=== PATIENT | male | born 1955 | race Caucasian/White ===

== ENCOUNTER 2017-07-15 15:09 | Inpatient (IN) ==
--- OUTSIDE RECORDS SUMMARY | 2017-07-15 15:15 | External Medical Summary | Continuity Of Care Document ---
:1955 Author Organization [facility] Address [address] [place] [address] Phone Care Team Providers Name Role Phone Unavailable Unavailable Unavailable JASON ZAMORANO, DUARTE Stephens Attending Provider Results Lab Results Visit/Account #[id number] (July 10, 2017 12:33pm - July 10, 2017 1:45pm) Test Result Date/Time CREATININE,POINT OF CARE POC CREATININE(0.6-1.3 MG/DL) 1.4 MG/DL July 10, 2017 12:43pm EST GLOMERULAR FILTRATION RATE(Greater than or equal to 60) 52 July 10, 2017 12:43pm Result Comments: If the patient is of -[place] descent/extraction multiply the eGFR value by 1.212 to obtain the actual eGFR. >=60 mg/dL Normal 30-59 mg/dL Moderate Kidney Disease 15-29 mg/dL Severe Kidney Disease <15 mg/dL Kidney Failure POCGL POCGL(70-110 MG/DL) 148 MG/DL July 10, 2017 12:35pm POC PT/INR POC PROTHROMBIN TIME(11.0-13.6) 12.9 July 10, 2017 12:38pm POC INR 1.1 July 10, 2017 12:38pm Result Comments: INR reference interval applies to patients on anticoagulant therapy. Suggested INR therapeutic range for oral anticoagulant therapy: (Stabilized anticoagulated patients) Routine Therapy: 2.0 to 3.0 Recurrent Myocardial Infarction: 2.5 to 3.5 Mechanical Prosthetic Valves: 2.5 to 3.5 COMPLETE BLOOD COUNT WITH DIFF WHITE BLOOD COUNT(4.0-11.0 10E3/UL) 16.5 10E3/UL July 10, 2017 12:36pm RED BLOOD COUNT(4.50-5.90 10E6/UL) 4.84 10E6/UL July 10, 2017 12:36pm HEMOGLOBIN(13.5-17.5 G/DL) 15.1 G/DL July 10, 2017 12:36pm HEMATOCRIT(41.0-53.0 %) 43.1 % July 10, 2017 12:36pm MEAN CORPUSCULAR VOLUME(82.0-100.0 FL) 89.0 FL July 10, 2017 12:36pm MEAN CORPUSCULAR HEMOGLOBIN(26.0-34.0 PG) 31.2 PG July 10, 2017 12:36pm MEAN CORPUSCULAR HGB CONC(31.5-36.5 G/DL) 35.0 G/DL July 10, 2017 12:36pm RED CELL DISTRIBUTION WIDTH(11.5-14.5 %) 13.2 % July 10, 2017 12:36pm 777-3: PLATELET COUNT(150-450 10E3/UL) 229 10E3/UL July 10, 2017 12:36pm MEAN PLATELET VOLUME(8.2-12.4 FL) 9.8 FL July 10, 2017 12:36pm NEUTROPHILS % (AUTO)(40-70 %) 83 % July 10, 2017 12:36pm LYMPHOCYTES % (AUTO)(15-45 %) 9 % July 10, 2017 12:36pm MONOCYTES % (AUTO)(2-10 %) 5 % July 10, 2017 12:36pm EOSINOPHILS % (AUTO)(0-6 %) 1 % July 10, 2017 12:36pm BASOPHILS % (AUTO)(0-1 %) 0 % July 10, 2017 12:36pm IMMATURE GRANS % (AUTO)(0-0 %) 1 % July 10, 2017 12:36pm NUCLEATED RBCS (AUTO)(0-0 %) 0 % July 10, 2017 12:36pm NEUTROPHILS # (AUTO)(2.5-7.5 10E3/UL) 13.7 10E3/UL July 10, 2017 12:36pm LYMPHOCYTES # (AUTO)(1.0-4.0 10E3/UL) 1.5 10E3/UL July 10, 2017 12:36pm MONOCYTES # (AUTO)(0.2-0.8 10E3/UL) 0.9 10E3/UL July 10, 2017 12:36pm EOSINOPHILS # (AUTO)(0.0-0.4 10E3/UL) 0.1 10E3/UL July 10, 2017 12:36pm BASOPHILS # (AUTO)(0.0-0.2 10E3/UL) 0.1 10E3/UL July 10, 2017 12:36pm IMMATURE GRANS # (AUTO)(0.0-0.0 10E3/UL) 0.2 10E3/UL July 10, 2017 12:36pm DIFF TYPE AUTOMATED July 10, 2017 12:36pm ERYTHROCYTE SEDIMENTATION RATE ERYTHROCYTE SEDIMENTATION RATE(0-20 MM/HR) 10 MM/HR July 10, 2017 12:36pm PARTIAL THROMBOPLASTIN TIME PARTIAL THROMBOPLASTIN TIME(22.2-37.4 SEC) 26.9 SEC July 10, 2017 12:36pm COMPLETE METABOLIC PROFILE GLUCOSE(70-110 MG/DL) 152 MG/DL July 10, 2017 12:36pm BLOOD UREA NITROGEN(6-20 MG/DL) 21 MG/DL July 10, 2017 12:36pm CREATININE(0.50-1.20 MG/DL) 1.57 MG/DL July 10, 2017 12:36pm EST GLOMERULAR FILTRATION RATE(Greater than or equal to 60) 45 July 10, 2017 12:36pm Result Comments: If the patient is of -[place] descent/extraction multiply the eGFR value by 1.212 to obtain the actual eGFR. >=60 mg/dL Normal 30-59 mg/dL Moderate Kidney Disease 15-29 mg/dL Severe Kidney Disease <15 mg/dL Kidney Failure BUN CREATININE RATIO(10.0-20.0 RATIO) 13.0 RATIO July 10, 2017 12:36pm SODIUM(135-145 MMOL/L) 136 MMOL/L July 10, 2017 12:36pm POTASSIUM(3.6-5.0 MMOL/L) 4.5 MMOL/L July 10, 2017 12:36pm CHLORIDE(101-111 MMOL/L) 102 MMOL/L July 10, 2017 12:36pm CO2(21-31 MMOL/L) 23 MMOL/L July 10, 2017 12:36pm ANION GAP(8-18) 16 July 10, 2017 12:36pm OSMO CALCULATED(270.0-290.0) 277.9 July 10, 2017 12:36pm CALCIUM(8.5-10.5 MG/DL) 8.9 MG/DL July 10, 2017 12:36pm BILIRUBIN,TOTAL(0.1-1.2 MG/DL) 0.4 MG/DL July 10, 2017 12:36pm ALKALINE PHOSPHATASE(42-121 IU/L) 57 IU/L July 10, 2017 12:36pm ASPARTATE AMINO TRANSFERASE(10-42 IU/L) 24 IU/L July 10, 2017 12:36pm ALANINE AMINOTRANSFERASE(10-60 IU/L) 12 IU/L July 10, 2017 12:36pm TOTAL PROTEIN(6.4-8.2 G/DL) 6.3 G/DL July 10, 2017 12:36pm ALBUMIN(3.5-5.5 G/DL) 3.7 G/DL July 10, 2017 12:36pm GLOBULIN(2.4-3.6) 2.6 July 10, 2017 12:36pm ALBUMIN/GLOBULIN RATIO(0.9-1.8 RATIO) 1.4 RATIO July 10, 2017 12:36pm CARDIAC TROPONIN I CARDIAC TROPONIN I(0.01-0.04 NG/ML) Less than 0.01 NG/ML July 10, 2017 12: 36pm Result Comments: REFERENCE RANGES: NEGATIVE < 0.04 NG/ML POSSIBLE MYCARDIAL INVOLVEMENT >/=0.04 NG/ML INTERPRET TROPONIN I RESULT IN LIGHT OF THE TOTAL CLINICAL PRESENTATION INCLUDING CLINICAL HISTORY. ANY CONDITION RESULTING IN MYOCARDIAL INJURY CAN POTENTIALLY ELEVATE TROPONIN I LEVELS ABOVE EXPECTED NORMAL RANGES. NOTE NEW REFERENCE RANGE ALCOHOL ALCOHOL(0.0-5.0 MG/DL) Less than 5.0 MG/DL July 10, 2017 12:36pm Allergies and Adverse Reactions Allergies and Adverse Reactions Patient Unit Number: [id number] No allergies recorded. Problem List Problem List No problem list recorded. Plan of Care Plan Of Care No Plan Of Care Data. Vital Signs Vital Signs No Vital Signs Data. Functional Status Functional and Cognitive Status No Functional Status Data Medications Home Medications - Medications that the patient was taking prior to arrival at the hospital Visit/Account #[id number] (July 10, 2017 12:33pm - July 10, 2017 1:45pm) Medication Route Sig/Schedule Precondition/Indication Comments/ Instructions Codes TOPROL XL(METOPROLOL SUCCINATE) 50 MG TAB ORAL DAILY TOPROL XL ( METOPROLOL SUCCINATE) NDC: 44095399757 Dose: 50 MG PRINIVIL(LISINOPRIL) 10 MG TABLET ORAL DAILY PRINIVIL (LISINOPRIL) NDC: 76523355234 Dose: 10 MG ASPIRIN CHEW(ASPIRIN) 81 MG TAB.CHEW ORAL DAILY ASPIRIN CHEW (ASPIRIN) NDC: 40626267727 Dose: 81 MG Inpatient/Ordered Medications - Medications administered during hospital visit Visit/Account #[id number] (July 10, 2017 12:33pm - July 10, 2017 1:45pm) Medication Route Sig/Schedule Precondition/Indication Comments/ Instructions Codes IV Medication INTRAVEN .Q1H (Rate: 1000 MLS/HR Duration: 1 HR) Carriers: Carriers: NORMAL SALINE (SODIUM CHLORIDE) NDC: 05936563251 NORMAL SALINE(SODIUM CHLORIDE) 1000 ML INJECTION Dose: 1000 ML IV Medication INTRAVEN NOW (Rate: 0 MLS/HR Duration: 1 MIN) Rx Order Comments: Additives: Order filed UNV: Additives: Allergies/Duplicates/Interactions differ from grey stock recorder ACTIVASE (ALTEPLASE RECOMBINANT) NDC: 00504681129 Rule Override: POM.TPA - I attest no contraindications to tPA found ( checklist done) - By User: MBILHIMER ACTIVASE(ALTEPLASE RECOMBINANT) 100 MG INJECTION Rule Override: POM.TPA - I attest no contraindications to tPA found (checklist done) - By User: MBILHIMER Carriers: Dose: 9 MG Label Comments: (WATER STERILE) NDC: [id number] Carriers: [facility] Pharmacy do NOT send. This item is in the stroke team WATER STERILE 100 ML INJECTION kit. Dose: 0 ML History Of Encounters Encounters Visit/Account #[id number] (July 10, 2017 12:33pm - July 10, 2017 1:45pm) Account Physican Of Reason For Visit Diagnosis Start Date/Time Stop Date/ Time Status Record Visit ER DUARTE GOMEZ MD RIGHT SIDE WEAKNESS Not Available Jul 10, 2017 12 :33pm Jul 10, 2017 1:45pm History of Procedures Procedure List No procedures recorded. Discharge Instructions Discharge Instructions Visit/Account #[id number] (July 10, 2017 12:33pm - July 10, 2017 1:45pm) DISCHARGE INSTRUCTIONS Physician Documentation Social History Social History No Social History Data. Immunizations Immunizations Patient Unit Number: [id number] Immunizations No immunizations recorded.
--- OUTSIDE RECORDS SUMMARY | 2017-07-15 15:15 | External Medical Summary | Continuity of Care Document ---
:1955 Author Organization [facility] Care Team Providers Name Role Phone ORESTES VASQUEZ MD Unavailable Unavailable Insurance Providers Payer Name Policy Number Subscriber Name Relationship [employer] [id number] Quan [place] Self / Same As Patient Advance Directives Directive Response Recorded Date/Time Advanced Directives No 12/31/15 9:19am Problems Active Problems Medical Problem Onset Date Status Umbilical hernia Unknown Acute Medications Current Home Medications Medication Dose Units Route Directions Days/Qty Instructions Start Date Lisinopril (Zestril) 10 10 Mg ORAL Daily 90 12/30/15 Mg Metoprolol Succinate 50 50 Mg ORAL Daily 90 12/30/15 Mg Aspirin 81 Mg 81 Mg ORAL Daily 12/30/15 Social History Social History Problem Response Recorded Date/Time Onset Date Status Occupation or Former Occupation [employer] 2015 9:24am Query Response Start Date Stop Date Smoking Status Current every day smoker Hospital Discharge Instructions No hospital discharge instructions. Plan of Care Discharge Date 12/31/15 1:20pm Prescriptions See Medication Section Functional Status No functional status results. Allergies, Adverse Reactions, Alerts No known allergies. Immunizations No immunization records. Vital Signs Acute Vital Signs Vital Response Date/Time Temperature (Fahrenheit) 97.6 2015 12:31pm Pulse 62 bpm 2015 1:03pm Respirations 20 2015 1:03pm Height 5 ft 8 in Weight 209 lb Body Mass Index 31.0 kg/m^2 Results No known relevant diagnostic tests, laboratory data and/or discharge summary. Procedures No known history of procedures. Encounters Encounter Location Arrival/Admit Date Discharge/Depart Date Attending Provider Departed Azeem 12/31/15 8:52am 12/31/15 1:20pm PRISCILA MUN[facility] MD Care Recent Diagnosis Umbilical hernia
[2017-07-15] MEDS: BUDESONIDE/FORMOTEROL 80/4.5mcg INHALER IH SCH (19:58)
--- NOTE | 2017-07-15 20:36 | IRU History & Physical Report ---
HPI IRU Date: Chief complaint: Right sided weakness HPI: Mister Santos is a 61-year-old male from [facility] whom I saw on the acute inpatient rehabilitation unit. Referring physician is Toby Tijerina M.D. from [facility]. His primary care physician is Dr. Alex Segal in [place]. History is obtained from the family, the patient and transfer records. I also reviewed the ED records from [facility]. Mister Santos was in his usual state of health prior to this event. He was totally independent with his activities of daily living. He works at [employer] in [place] in the [facility] [place]. He does have history of hypertension and takes medications for this. The patient went to meet a friend in [place] on July 10, 2017. They were having coffee. He was noted to suddenly have onset of confusion and difficulty with speech. EMS was called and he was transported to the emergency department in [place]. His blood sugar was running 147. Stroke activation was called and he had an NIH stroke score of 17. Family was not available for discussion. A stat CT scan was done which was unremarkable. He had significant right hemiparesis and expressive aphagia. The patient was given TPA after consultation was made with [facility] neurology. His last known wakefulness and normal activity was 10 AM on the day of the event. TPA was begun at 1315 hrs. Following that the patient was transferred emergently to [facility] neurological ICU. MRI of brain on July 11, 2017 demonstrated large left MCA territory infarct without evidence of involvement of the deep fisher nuclei. There was some associated cortical edema but no mass effect and no hemorrhage. On July 13 an echocardiogram showed an ejection fraction of around 60% and apparently no cardiac source of embolus. Chest x-ray has demonstrated some mild pulmonary congestion and small left pleural effusion. His NIH stroke scale improved to 11 for right-sided weakness, aphagia, left gaze , inability to follow commands and confusion. Blood pressure in [place] was 103 and in [place] it was 99. CT angiogram of the head and neck was negative for occlusion. In addition his initial creatinine was 1.57 possibly indicative of acute kidney injury. While in [place], it was noted that his blood sugars were running a bit high. He has not been diagnosed officially with diabetes mellitus. Reviewing outside records indicates fingerstick blood sugars high of 157 with many of them in the 120-130 range. His A1c on July 10, 2017 was 6.1%. His creatinine has returned to normal as of July 13 at which time it was 1.06. Potassium was low at 3.4 on July 13. At home the patient is fully ambulatory and able to take care of himself. He is quite active. He does smoke one pack of cigarettes daily. Last alcohol reportedly 2013. He has recently been started on atorvastatin after the stroke in [place]. Patient does not use any assistive equipment at home. In [place] he was evaluated by speech therapy, occupational therapy and physical therapy in [place]. He does have an expressive and receptive aphasia. He is currently on a mechanical soft diet with no added salt and nectar thickened liquids. Compared to his prior totally independent level of functioning, at the present time he has significant right hemiparesis. He is at supervision level for feeding, moderate assistance for grooming, moderate assistance for upper and lower body dressing, minimal assistance for toileting and bed/chair/wheelchair transfers as well as toilet transfers. He is maximum assistance for walking. He has a significant expressive aphasia. Medical issues identified as follows: 1. New left hemispheric CVA with right hemiparesis: He is at risk for falls and further injury in that regard as well as at risk for intracranial bleeding. He is also at risk for aspiration. 2. Hypertension 3. Hyperlipidemia: Patient is on a new medication for this 4. He is at risk for skin breakdown in view of the right hemiparesis and reduced activity 5. Recent hypokalemia 6. Abnormal chest X-ray with pleural effusion 7. Wheezing/bronchospasm by report from [place] While on acute rehabilitation he will be seen by the following disciplines: 1. Dietitian: to insure adequate oral intake in view of his dysphagia 2. Speech therapy: To assess dysphagia as well as cognition and speech development 3. Physical therapy and occupational therapy to address ADLs and ambulation 4. 24-hour rehabilitation nursing to monitor blood sugars, blood pressures and neurologic status 5. Medical supervision for the above problems. [facility] Patient Stated Medical History Cerebrovascular Accident Yes: 07/10/17 Dysphagia Yes: since stroke 07/10/17 Chronic Obstructive Pulmonary Yes Disease (COPD) Constipation No Hx Incontinence No Medical History Updates: 1. Hypertension. 2. Hyperlipidemia. 3. Chronic tobacco use. 4. Hyperglycemia without dx of diabetes. 5. Acute left MCA CVA: ischemic 07-10-17 Surgical History: Knee surgery for meniscus (? which knee) Family History: Father is living and has colon cancer and "spells." Mother is living and healthy. - Social History Smoking status: Current every day smoker Packs per day: 1 (Started age 15 and continues to present) Packs-years: 46 Quit date: 07/10/17 Time spent discussing smoking cessation with patient: 3 to 10 minutes Substance use type: does not use Alcohol intake: former Housing: house Household members: spouse Current occupational status: employed Current residence: Apartment/Private Home Social history: Pt works at [employer] in [place] in the [facility] [place]. Review of Systems - Constitutional Constitutional: Present: lethargy - EENMT Eyes: Present: diplopia (He denies this but does have dysconjugate gaze on exam. ). Absent: blurry vision, loss of vision Balance: Absent: vertigo Mouth/Throat: Absent: sore throat - Cardiovascular Cardiovascular: Absent: chest pain, palpitations, syncope, dyspnea on exertion, orthopnea, edema Rhythm: Present: regular rhythm - Respiratory Respiratory: Present: wheezing, chest congestion. Absent: cough, dyspnea, hemoptysis, dyspnea on exertion - Gastrointestinal Gastrointestinal: Absent: abdominal pain, change in bowel habits, change in stool character, coffee ground emesis, constipation, diarrhea, dyspepsia, dysphagia, early satiety, nausea, vomiting - Integumentary/Breasts Integumentary: Absent: alopecia, erythema - Neurological Neurological: Present: abnormal gait, abnormal speech, focal weakness, weakness. Absent: abnormal movements, headache(s), tremor(s) - Psychiatric Psychiatric: Present: abnormal sleep pattern. Absent: anxiety, depression Medications Home Medications Medication Instructions Recorded Confirmed Type Albuterol/Ipratropium [Duoneb] 1 unit AEROSOL Q2HR PRN 07/15/17 07/15/17 History Albuterol/Ipratropium [Duoneb] 1 unit AEROSOL Q6H 07/15/17 07/15/17 History Amlodipine [Norvasc] 5 mg PO DAILY 07/15/17 07/15/17 History Atorvastatin Calcium 80 mg PO HS 07/15/17 07/15/17 History Budesonide/Formoterol Fumarate 2 puff IH BID 07/15/17 07/15/17 History [Symbicort 80-4.5 Mcg Inhaler] Docusate Sodium [Colace] 1 cap PO BID 07/15/17 07/15/17 History Ramelteon [Rozerem] 8 mg PO HS 07/15/17 07/15/17 History Results IRU - Labs Labs: I personally reviewed outside records from [place] as well as [facility]. Exam Vital Signs: Temperature 97.0 F 07/15/17 15:13 Pulse Rate 64 07/15/17 15:13 Respiratory Rate 16 07/15/17 20:00 Blood Pressure 129/72 07/15/17 15:13 Pulse Oximetry 94 07/15/17 15:13 Height/Weight/BMI: Height 1.73 m Weight 104.7 kg Body Mass Index 35.1 - Constitutional Present: mild distress, well nourished, well developed, obese, cooperative. Absent: diaphoretic, agitated, somnolent, obtunded - Routine HEENT Exam Head: Present: normocephalic, atraumatic. Absent: abrasion, laceration, hematoma Eye: Present: PERRL. Absent: EOMI (disconjugate gaze. Right eye does not move well to his right.), conjunctival icterus, scleral injection, conjunctivae pink ENT: Present: mucous membranes moist - Routine Neck Exam Present: supple, full ROM. Absent: lymphadenopathy, thyromegaly - Routine Chest/Breast/Axilla Exam Chest wall: Absent: tenderness - Routine Respiratory Exam Present: CTA bilaterally. Absent: accessory muscle use, dyspnea, decreased breath sounds, respiratory distress, wheezes (wheezes were reported on transfer records but he sounds clear at present.) - Routine Cardiovascular Exam Present: RRR, S1, S2, no murmur. Absent: S3, S4 - Routine Abdominal Exam Present: soft, normoactive bowel sounds, non distended, non tender. Absent: guarding, firm, rigid, organomegaly, mass - Routine Extremities Exam Present: no edema. Absent: cyanosis, clubbing - Routine Neurological Exam Present: alert, motor deficit, abnormal gait, facial asymmetry. Absent: oriented X3 (unable to fully determine orientation due to expressive aphasia.), CN II-XII intact (right facial droop.), normal speech, tremors His neurologic exam is abnormal. He does not have a tremor. He is able to raise the right arm off the bed somewhat against resistance. He can hold it in mid air. He clearly has right side neglect. At one point he spontaneously raised his right arm and it fell on his right side of his face which seemed to surprise him. Fine motor movement in right hand is poor. He is able to lift the right leg off the bed against resistance fairly well. Plantarflexion and dorsiflexion is reduced on the right compared to the left but is still present. He does have right facial droop. He does have severe expressive aphasia. I can understand some words and he seems to be able to understand most of what we are asking. - Routine Psychiatric Exam Present: cooperative. Absent: agitated Sepsis Assessment - Evaluation Confirmed Suspected Infection: No IRU A/P (1) Acute ischemic left MCA stroke Current visit: Yes Status: Acute The patient has had TPA at the time of presentation and has been evaluated and is now on aspirin. No embolic source was able to be identified. CTA of neck arteries and head vessels was negative. He will require intensive individualized physical therapy, occupational therapy and speech therapy along with other disciplines to allow him to get back to his previous level of functioning. (2) Benign essential hypertension Current visit: Yes Status: Chronic He is on medication for his hypertension. His blood pressures have been fairly well controlled in the records that we have available. This will be monitored carefully as he is at risk for lightheadedness, hypertension or hypotension. (3) Hyperglycemia Current visit: Yes Status: Acute It is not certain how long he has had elevated blood sugars. His A1c is fairly normal. We will treat this with a consistent carbohydrate diet and monitor his blood sugars. (4) Hyperlipidemia Qualifiers: Hyperlipidemia type: mixed hyperlipidemia Qualified Code(s): E78.2 - Mixed hyperlipidemia Current visit: Yes Status: Chronic He was recently started on simvastatin for his hyperlipidemia. DVT Prophylaxis: SCD's, Lovenox Resuscitation Status: Full Code - Course Hospital Course: Silas Alba MD: - Interventions to Obtain Goals PT Treatment Plan: Balance/Proprioception, Functional Activities, Gait Training , Patient/Family Education, Therapeutic Exercise OT Treatment Plan: ADL (Basic Care), Balance Training, Pt./Family Education, UE Functional Training Goals Progress/Modifications: An intensive individualized program of therapy will be developed for this patient with an acute right hemiparesis. He has significant needs for physical therapy, occupational therapy and speech therapy as well as close monitoring by dietitian, 24-hour rehabilitation nursing and medical supervision of multiple problems. We will monitor his blood sugars as well.
[2017-07-15] MEDS ORDERED: RAMELTEON 8 MG PO SCH (21:00)
--- NOTE | 2017-07-15 21:03 | IRU 24Hr Post Admit Eval ---
24 Hr Post Admission Physical - Relevant Changes Relevant Changes: No Reviewed: I have reviewed the patient's information and concur with the finding and results of the pre-admission screen. Certification: I certify the patient for rehabilitation. - Patient Condition (1) Acute ischemic left MCA stroke Status: Acute Code(s): I63.512 - Cerebral infarction due to unspecified occlusion or stenosis of left middle cerebral artery Classification: Present on IRF Admission, IRF Tx That Should Address Diagnosis, Diagnosis Requiring Medical Follow Up (2) Benign essential hypertension Status: Chronic Code(s): I10 - Essential (primary) hypertension Classification: Present on IRF Admission, IRF Tx That Should Address Diagnosis, Diagnosis Requiring Medical Follow Up (3) Hyperglycemia Status: Acute Code(s): R73.9 - Hyperglycemia, unspecified Classification: Present on IRF Admission, IRF Tx That Should Address Diagnosis, Diagnosis Requiring Medical Follow Up (4) Hyperlipidemia Status: Chronic Qualifiers: Hyperlipidemia type: mixed hyperlipidemia Qualified Code(s): E78.2 - Mixed hyperlipidemia Code(s): E78.5 - Hyperlipidemia, unspecified Classification: Present on IRF Admission, Diagnosis Requiring Medical Follow Up - Prior Functional Status Lives With: Spouse Residence Type: Apartment/Private Home Assitive Devices: None Prior Functional Status: Indep. at home or school, Indep. w/ IADL - Current Functional Status Current Level of Function: He has significant right hemiparesis. He is at supervision level for feeding, moderate assistance for grooming, moderate assistance for upper and lower body dressing, minimal assistance for toileting and bed/chair/wheelchair transfers as well as toilet transfers. He is maximum assistance for walking. He has a significant expressive aphasia. Failed Alternative Therapy: Arrived from Acute Care Patient Requirements: The patient requires oversight by rehabilitation physician to manage their rehabilitation treatment plan and multidisciplinary approach to care that can only be provided in an IRF and requires a multidisciplinary approach to care, provided by professional PTs, OTs, STs, dieticians, RTs, rehabilitation nurses and is not available in lesser levels of care. Limitations Req: Mobility Impairment, ADL Impairment Speech Therapy Minutes: 30 Physical Therapy Minutes: 90 Occupational Therapy Minutes: 90 Therapy: The patient is to receive therapy at least [address] Treatment Plan: Swallow Retraining/Exercises, Swallow Precautions, Modified Diet, Oral Motor Exercise, Communication Retraining, Cognitive Linguistic Tx ST Treatment Plan Frequency: Five Times Per Week ST Treatment Plan Duration: Two Weeks ROM Deficit: Right Upper Extremity, Right Lower Extremity - Complications/Comorbidities Impact on Functional Outcomes: his right hemiparesis as well as potentially his bronchospasm are barriers to functional improvement. Barriers to Discharge: Weakness, Balance, Endurance - Plan to Avoid Complications Plan to Avoid Complications: The patient cannot receive this care in a lesser intensive setting such as [facility] or Outpatient Therapy due to the patient requiring the following : close monitoring of neurologic status, blood glucose monitoring, skin assessment, BP monitoring. .
[2017-07-15] MEDS: DOCUSATE SODIUM 100 MG CAPSULE PO SCH (21:40)
[2017-07-15] MEDS: ATORVASTATIN 40 MG TABLET PO SCH (21:40)
[2017-07-15] MEDS: MELATONIN 5 MG TABLET PO SCH (21:41)
[2017-07-16] MEDS: DOCUSATE SODIUM 100 MG CAPSULE PO SCH ×2 (08:58→21:09)
[2017-07-16] MEDS: ENOXAPARIN 40 MG/0.4 ML INJECTION SQ SCH (08:58)
[2017-07-16] MEDS: AMLODIPINE 5 MG TABLET PO SCH (08:58)
[2017-07-16] MEDS: ASPIRIN *EC* 81 MG TABLET PO SCH (08:58)
--- NOTE | 2017-07-16 09:03 | Consult Note ---
<Mali Curry Aníbal - Last Filed: 07/16/17 09:26> Consult Information - Data of Consult Consult date: 07/16/17 Requesting Physician: Silas Alba MD Primary Care Provider: Alex Segal MD Family Provider: Alex Segal MD - Consult Narrative Reason for consult: stroke; medical management History of present illness: Quan Santos is a 61 y/o male who suffered a stroke with right hemiparesis, left gaze, confusion, dysphagia, ataxia, inability to follow directions, and receptive/expressive aphasia on 07/10/17. Initial NIH was 17. He received IV tPA 9 mg in [place] and was transferred to neuro ICU at [facility], where he received hypertonic fluids for cerebral edema and was started on statin and ASA was continued but was increased from 81 mg which he took at home to 325 mg. Quan had mild bradycardia (likely baseline) but no a-fib. He had wheezing and was given duoneb; providers at [facility] suspected underlying COPD d/t smoking hx. He was medically stabilized and was transferred to [facility] on 07/15/17. Quan was working with therapy, and was A&O and very pleasant. He smiled often, especially when he had difficulties with expressive aphasia. He was unable to confirm whether or not he lived in [place] or [place]; unable to state his occupation. His responses were largely limited to yes/no responses, and even then he occasionally had to retract his response or wavered between yes/no. He feels like that right facial drooping and right hemiparesis are improving. He feels a little off balance but OT reports that he's fairly stable on his feet. He endorses vision changes and waves his hand over his right eye but was unable to provide further details. He has right arm swelling and b/l leg swelling. He denies headache, chest pain, dizziness, or lightheadedness. He denies sinus congestion/drainage. He denies palpitations. He denies abdominal pain, n/v/d/c or any urinary issues. PFSH Acute left MCA CVA: ischemic 07/10/17 s/p TPA Hypertension Hyperlipidemia Chronic tobacco use Hyperglycemia without dx of diabetes Obesity BMI >30 Surgical History: 2D echo with bubble study: EF 55-65%, no wall abnormalities, shunts, or clots. Knee surgery (scars noted to both knees) Family History: Patient denies family history of stroke, heart disease, or cancer. - Social History Smoking status: Current every day smoker Packs per day: 1 Substance use type: does not use Alcohol intake: former (quit in 2013) Household members: spouse Current occupational status: employed Current residence: Apartment/Private Home Social history: PCP: Dr. Segal in [place] DPOA: Jamilah Santos, Review of Systems ROS unobtainable: due to mental status (pt continues to have expressive aphasia and ROS may not be entirely accurate. His responses were largely limited to y/n but sometimes he changed his answer. ) All systems PM: 10-point ROS was reviewed, no additional remarkable complaints except - Constitutional Constitutional: Absent: chills, fever(s) - EENMT Eyes: Present: change in vision (has difficulty describing) Nose: Absent: obstruction Mouth/Throat: Present: changes in swallowing. Absent: sore throat - Cardiovascular Cardiovascular: Absent: chest pain, dyspnea on exertion Vascular: Present: pedal edema, unilateral swelling (right arm) - Respiratory Respiratory: Present: wheezing (per [facility] notes he had occasional expiratory wheezing). Absent: cough, dyspnea on exertion - Gastrointestinal Gastrointestinal: Absent: abdominal pain, constipation, diarrhea, nausea, vomiting - Genitourinary Genitourinary: Present: other (had Velazquez at [facility]). Absent: dysuria - Musculoskeletal Musculoskeletal: Present: abnormal gait. Absent: back pain, muscle weakness - Integumentary/Breasts Integumentary: Present: other (ecchymosis to both arms) - Neurological Neurological: Present: abnormal gait, abnormal movements, abnormal speech, confusion, weakness - Psychiatric Psychiatric: Absent: anxiety, depression - Hematologic/Lymphatic Hematologic/Lymphatic: Absent: easy bleeding, easy bruising - Allergic/Immunologic Allergic/Immunologic: Absent: seasonal rhinorrhea Medications Home Medications Medication Instructions Recorded Confirmed Type Albuterol/Ipratropium [Duoneb] 1 unit AEROSOL Q2HR PRN 07/15/17 07/15/17 History Albuterol/Ipratropium [Duoneb] 1 unit AEROSOL Q6H 07/15/17 07/15/17 History Amlodipine [Norvasc] 5 mg PO DAILY 07/15/17 07/15/17 History Atorvastatin Calcium 80 mg PO HS 07/15/17 07/15/17 History Budesonide/Formoterol Fumarate 2 puff IH BID 07/15/17 07/15/17 History [Symbicort 80-4.5 Mcg Inhaler] Docusate Sodium [Colace] 1 cap PO BID 07/15/17 07/15/17 History Ramelteon [Rozerem] 8 mg PO HS 07/15/17 07/15/17 History Allergies Allergy/AdvReac Type Severity Reaction Status Date / Time No Known Allergies Allergy Verified 07/16/17 08:31 Exam Vital Signs: Temperature 98.1 F 07/15/17 23:27 Pulse Rate 56 L 07/15/17 23:27 Respiratory Rate 22 07/15/17 23:27 Blood Pressure 113/76 07/15/17 23:27 Pulse Oximetry 93 07/15/17 23:27 Height/Weight/BMI: Height 1.73 m Weight 104.7 kg Body Mass Index 35.1 - Constitutional Present: no acute distress, well nourished, well developed, obese - Routine HEENT Exam Head: Present: normocephalic Eye: Present: PERRL. Absent: EOMI, conjunctival icterus, scleral injection ENT: Present: mucous membranes moist, oropharynx clear - Routine Neck Exam Present: supple. Absent: lymphadenopathy - Routine Respiratory Exam Present: CTA bilaterally - Routine Cardiovascular Exam Present: RRR, S1, S2 - Routine Abdominal Exam Present: soft, non tender. Absent: normoactive bowel sounds (hypoactive) - Routine Extremities Exam Present: edema (2+ BLE; Rt arm is also edematous), pulses intact Comments: linear scars over both tibial tuberosities with arthroscopic scars also noted to left knee - Routine Skin Exam Present: intact, dry, warm, ecchymosis (both arms) - Routine Neurological Exam Present: alert No nystagmus but tendency towards left gaze and had difficulty with EOMs Light touch sensation intact Right facial droop with loss of right nasolabial fold Tongue deviates to the right RUE 3/5, LUE 5/5 Unable to perform alternating movements in right hand but has no difficulty with left hand RLE 5/5, LLE 5/5 - Routine Psychiatric Exam Present: normal affect (smiles frequently), cooperative Results - Labs CBC & Chem 7: 07/16/17 04:55 07/16/17 04:55 Assessment and Plan (1) Acute ischemic left MCA stroke Current visit: Yes Status: Acute Resuscitation Status: Full Code Assessment and Plan: IMPRESSION Acute left MCA CVA: ischemic 07/10/17 s/p TPA -Right hemiparesis, left gaze, expressive aphasia, dysarthria, confusion, dysphagia -ASA 325, statin Leukocytosis Hypernatremia (had been on hypertonic saline) Hypokalemia - resolved Thromboyctopenia - resolved Hypertension Hyperlipidemia Chronic tobacco use, suspect underlying COPD Hyperglycemia without dx of diabetes Obesity BMI >30 PLAN Dysphagia - ST to eval. Antiplatelet - ASA 325 mg (prior to stroke he was taking 81 mg) Statin - atorvastatin Hypernatremia - not unexpected given hypertonic infusion - recheck BMP + mg in am. Rt arm swelling - check venous doppler. HTN - Norvasc. Goal is SBP <160. Suspect COPD - Symbicort BID + DuoNeb PRN. Nicotine patch PRN. Will ask RT to provide smoking cessation counseling. Agree with discontinuing Rozerem. Therapy orders per attending. Thank you for this consult - we will follow Mr. Santos along with you during his IRU course. [facility] record review: CT/MRI showed a large acute ischemic left MCA stroke and associated cortical edema without mass effect/hemorrhage. CTA head/neck with contrast: acute left MCA infarct; minimal bilateral carotid bifurcation but no hemodynamically significant stenosis, chronic maxillary and sphenoid sinus disease. Prior to the stroke he was on a regular diet but this was changed to mechanical soft and nectar thick liquids. 2D echo with bubble study: EF 55-65%, no wall abnormalities, shunts, or clots He had a Velazquez catheter at [facility]. Mild leukocytosis (WBC 11); normocytic anemia with hgb 12.2; BUN 21, cr 0.95; mild hypernatremia (146) & mild hypokalemia (3.4); mg low-normal (1.9). Lipid panel done on 07/11 showed chol 147, LDL 93, HDL 32 (Low), trig 112; hgb A1c 6.1% . Platelets trended down from 145 on 07/11 to 104 on 07/14. Hospital Course Summary Disclaimer: The visit summary below is not to be considered part of the above Progress Note. Hospital Course: IMPRESSION Acute left MCA CVA: ischemic 07/10/17 s/p TPA -Right hemiparesis, left gaze, expressive aphasia, dysarthria, confusion, dysphagia -ASA 325, statin Leukocytosis Hypernatremia (had been on hypertonic saline) Hypokalemia - resolved Thromboyctopenia - resolved Hypertension Hyperlipidemia Chronic tobacco use, suspect underlying COPD Hyperglycemia without dx of diabetes Obesity BMI >30 PLAN Dysphagia - ST to eval. Antiplatelet - ASA 325 mg (prior to stroke he was taking 81 mg) Statin - atorvastatin Hypernatremia - not unexpected given hypertonic infusion - recheck BMP + mg in am. Rt arm swelling - check venous doppler. HTN - Norvasc. Goal is SBP <160. Suspect COPD - Symbicort BID + DuoNeb PRN. Nicotine patch PRN. Will ask RT to provide smoking cessation counseling. Agree with discontinuing Rozerem. Therapy orders per attending. Thank you for this consult - we will follow Mr. Santos along with you during his IRU course. [facility] record review: CT/MRI showed a large acute ischemic left MCA stroke and associated cortical edema without mass effect/hemorrhage. CTA head/neck with contrast: acute left MCA infarct; minimal bilateral carotid bifurcation but no hemodynamically significant stenosis, chronic maxillary and sphenoid sinus disease. Prior to the stroke he was on a regular diet but this was changed to mechanical soft and nectar thick liquids. 2D echo with bubble study: EF 55-65%, no wall abnormalities, shunts, or clots He had a Velazquez catheter at [facility]. Mild leukocytosis (WBC 11); normocytic anemia with hgb 12.2; BUN 21, cr 0.95; mild hypernatremia (146) & mild hypokalemia (3.4); mg low-normal (1.9). Lipid panel done on 07/11 showed chol 147, LDL 93, HDL 32 (Low), trig 112; hgb A1c 6.1% . Platelets trended down from 145 on 07/11 to 104 on 07/14. <Lian Rossi - Last Filed: 07/16/17 18:10> Consult Information - Data of Consult Primary Care Provider: Exam Vital Signs: Temperature 98.8 F 07/16/17 16:00 Pulse Rate 55 L 07/16/17 16:00 Respiratory Rate 16 07/16/17 16:00 Blood Pressure 139/74 07/16/17 16:00 Pulse Oximetry 96 07/16/17 16:00 Height/Weight/BMI: Height 1.73 m Weight 104.7 kg Body Mass Index 35.1 Results - Labs CBC & Chem 7: 07/16/17 04:55 07/16/17 04:55 Assessment and Plan (1) Acute ischemic left MCA stroke Current visit: Yes Status: Acute Assessment and Plan: I have independently evaluated and examined this patient. I reviewed the chart, the patient's history, and the [facility] [employer] CALL/PA's documented findings as above. We discussed and formulated the assessment and plan as above with additions as below: Mr. Santos transferred from the neuro ICU at [facility] after large vessel ischemic stroke involving the left MCA territory with resultant right hemiparesis and global aphasia described initially. At present aphasia appears to be primarily expressive. Workup is as described above and he is now transferred for aggressive inpatient rehabilitation. Patient reports that he is getting better and hopes to be able to go home walking. He is typically able to answer yes/no and with occasional words although word misuse is frequently evident. He is not overtly frustrated with expressive aphasia at the time of my evaluation and lasted off or shakes his head and moves on. No drift right upper extremity, minimal vocational technical education director right hand-hand appears to be the primary motor deficit lingering. Power in the lower extremities is good. Sensation intact to light touch including two point stimulation. Speech is previously noted. Cardiac rhythm regular, S1 and S2, respirations nonlabored with good airflow. Venous Doppler upper extremity reviewed-no DVT [facility] records reviewed, discharge summary still pending. Adequate blood pressure control. Continue aspirin and statin. Hospital Course Summary Disclaimer: The visit summary below is not to be considered part of the above Progress Note.
[2017-07-16] MEDS ORDERED: ALBUTEROL/IPRATROPIUM 2.5mg-0.5mg/3ml NEB AEROSOL ONE (09:57)
[2017-07-16] MEDS: BUDESONIDE/FORMOTEROL 80/4.5mcg INHALER IH SCH ×2 (10:25→21:27)
[2017-07-16] MEDS: ATORVASTATIN 40 MG TABLET PO SCH (21:09)
[2017-07-16] MEDS: MELATONIN 5 MG TABLET PO SCH (21:10)
[2017-07-17] MEDS: AMLODIPINE 5 MG TABLET PO SCH (08:40)
[2017-07-17] MEDS: DOCUSATE SODIUM 100 MG CAPSULE PO SCH ×2 (08:40→20:37)
[2017-07-17] MEDS: ENOXAPARIN 40 MG/0.4 ML INJECTION SQ SCH (08:40)
[2017-07-17] MEDS: ASPIRIN *EC* 81 MG TABLET PO SCH (08:40)
[2017-07-17] MEDS: NICOTINE PATCH REMOVAL TD SCH (08:41)
[2017-07-17] MEDS: BUDESONIDE/FORMOTEROL 80/4.5mcg INHALER IH SCH (10:00)
[2017-07-17] MEDS ORDERED: INHALER ASSIST DEVICE (Optichamber) MC ONE (10:07)
--- NOTE | 2017-07-17 10:24 | Ultrasound Report ---
Indication: Rt arm swelling r/o DVT PROCEDURE: US venous doppler UE RT: Encounter: Initial Comparison: None Technique: Color Doppler duplex and grayscale sonographic imaging of the right upper extremity was performed. FINDINGS: There is no evidence for acute deep venous thrombosis in the right arm. The right internal jugular, subclavian, axillary and paired brachial veins were evaluated; compression and augmentation were applied where possible. In addition, color and pulsed Doppler demonstrate appropriate spontaneous flow, cardiac pulsatility and variation with respiration. IMPRESSION: No evidence of acute DVT in the right upper extremity. There is a preliminary report by [facility]. .
[2017-07-17] MEDS: MELATONIN 5 MG TABLET PO SCH (20:37)
[2017-07-17] MEDS: ATORVASTATIN 40 MG TABLET PO SCH (20:37)
[2017-07-18] MEDS: DOCUSATE SODIUM 100 MG CAPSULE PO SCH ×2 (08:48→21:40)
[2017-07-18] MEDS: NICOTINE PATCH REMOVAL TD SCH (08:49)
[2017-07-18] MEDS: ASPIRIN *EC* 81 MG TABLET PO SCH (09:02)
[2017-07-18] MEDS: AMLODIPINE 5 MG TABLET PO SCH (09:03)
--- NOTE | 2017-07-18 09:52 | Progress Note ---
Subjective: Quan was getting ready for breakfast. His right facial droop isn't as pronounced and he has better control of the proximal muscles of his right arm. He answers questions with more accuracy but still has expressive aphasia and occasionally has to correct himself. He is jovial and smiles/laughs often. He denies any chest pain or difficulty breathing. He rested well last night. He denies dysphagia. Objective Vital signs: Temperature 98.3 F 07/18/17 08:00 Pulse Rate 63 07/18/17 08:00 Respiratory Rate 18 07/18/17 08:00 Blood Pressure 112/65 07/18/17 08:00 Pulse Oximetry 97 07/18/17 08:00 Height/Weight/BMI: Height 1.73 m Weight 104.7 kg Body Mass Index 35.1 - Constitutional Present: no acute distress, well nourished, well developed, obese - Routine HEENT Exam ENT: Present: mucous membranes moist, oropharynx clear - Routine Respiratory Exam Present: CTA bilaterally - Routine Cardiovascular Exam Present: RRR, S1, S2 - Routine Abdominal Exam Present: soft, normoactive bowel sounds, non tender, distended (mild) - Routine Extremities Exam Present: no edema, pulses intact - Routine Skin Exam Present: intact, dry, warm - Routine Neurological Exam Present: alert, oriented X3, motor deficit (more easily lifts right arm with activation of right deltoid; still unable to withstand even light resistance with elbow flex/extension. Unable to perform fine motor tasks of right hand or extend the fingers.), facial asymmetry (right facial droop is improving) - Routine Psychiatric Exam Present: normal affect, cooperative Results - Labs CBC & Chem 7: 07/16/17 04:55 07/17/17 04:10 Assessment and Plan (1) Acute ischemic left MCA stroke Current visit: Yes Status: Acute DVT Prophylaxis: Lovenox Resuscitation Status: Full Code Assessment and Plan: Acute left MCA CVA: ischemic 07/10/17 s/p TPA -Right hemiparesis, left gaze, expressive aphasia, dysarthria, confusion, dysphagia -ASA 325, statin Hypernatremia (had been on hypertonic saline) - resolved Hypokalemia Leukocytosis - resolved Thrombocytopenia - resolved Hypertension Hyperlipidemia Chronic tobacco use, suspect underlying COPD Hyperglycemia without dx of diabetes Obesity BMI >30 Plan Improvement in facial drooping but right hemiparesis persists without significant change. Expressive aphasia seems to be improving. Continue ASA + Statin. Labs assessed yesterday - hypernatremia resolved; KDur ordered for mild hypokalemia - will repeat labs in am to f/u. BP under good control with amlodipine. Hospital Course Summary Disclaimer: The visit summary below is not to be considered part of the above Progress Note. Hospital Course: IMPRESSION Acute left MCA CVA: ischemic 07/10/17 s/p TPA -Right hemiparesis, left gaze, expressive aphasia, dysarthria, confusion, dysphagia -ASA 325, statin Leukocytosis Hypernatremia (had been on hypertonic saline) Hypokalemia - resolved Thromboyctopenia - resolved Hypertension Hyperlipidemia Chronic tobacco use, suspect underlying COPD Hyperglycemia without dx of diabetes Obesity BMI >30 PLAN Dysphagia - ST to eval. Antiplatelet - ASA 325 mg (prior to stroke he was taking 81 mg) Statin - atorvastatin Hypernatremia - not unexpected given hypertonic infusion - recheck BMP + mg in am. Rt arm swelling - check venous doppler. HTN - Norvasc. Goal is SBP <160. Suspect COPD - Symbicort BID + DuoNeb PRN. Nicotine patch PRN. Will ask RT to provide smoking cessation counseling. Agree with discontinuing Rozerem. Therapy orders per attending. Thank you for this consult - we will follow Mr. Santos along with you during his IRU course. [facility] record review: CT/MRI showed a large acute ischemic left MCA stroke and associated cortical edema without mass effect/hemorrhage. CTA head/neck with contrast: acute left MCA infarct; minimal bilateral carotid bifurcation but no hemodynamically significant stenosis, chronic maxillary and sphenoid sinus disease. Prior to the stroke he was on a regular diet but this was changed to mechanical soft and nectar thick liquids. 2D echo with bubble study: EF 55-65%, no wall abnormalities, shunts, or clots He had a Velazquez catheter at [facility]. Mild leukocytosis (WBC 11); normocytic anemia with hgb 12.2; BUN 21, cr 0.95; mild hypernatremia (146) & mild hypokalemia (3.4); mg low-normal (1.9). Lipid panel done on 07/11 showed chol 147, LDL 93, HDL 32 (Low), trig 112; hgb A1c 6.1% . Platelets trended down from 145 on 07/11 to 104 on 07/14. 07/18/17 Improvement in facial drooping but right hemiparesis persists without significant change. Expressive aphasia seems to be improving. Continue ASA + Statin. Labs assessed yesterday - hypernatremia resolved; KDur ordered for mild hypokalemia - will repeat labs in am to f/u. BP under good control with amlodipine.
[2017-07-18] MEDS: ENOXAPARIN 40 MG/0.4 ML INJECTION SQ SCH (10:36)
[2017-07-18] MEDS: BUDESONIDE/FORMOTEROL 80/4.5mcg INHALER IH SCH ×2 (10:54→22:18)
--- NOTE | 2017-07-18 11:13 | IRU Progress Note ---
- Subjective/Serverity of Illness Mr. Santos was evaluated in his room on the inpatient rehabilitation unit. His is present. He was able to ambulate quite nicely. Continues to have expressive dysphasia noted but is perhaps improving. Right facial droop is a bit less. He is able to lift his right arm up even against some degree of resistance. Fine motor movement is poor in the right hand however. noted Maury-Gramajo and Kussmaul-type respirations which I told her were fairly typical after a stroke. He denies any chest pain or shortness of breath. He denies any difficulty with his bowels at present. He states that his appetite is good. Prior to admission to [facility] he was on 81 mg of aspirin daily. They did not find a source of embolus and had no evidence of atrial fibrillation. He was increased to 325 mg daily. reports episodes of stopping breathing at home at night while he sleeps. Has not had a formal sleep study. I told her that we could do an overnight oximetry but we cannot do a formal sleep study at this time. In any event it may be a bit premature in view of his recent stroke. Update on medical issues: 1. New left hemispheric CVA with right hemiparesis: Neurologically he is improved. No evidence of progression of stroke. We will keep him on the third and 25 mg of aspirin daily. 2. Hypertension: Blood pressures are well controlled on the current medications. He is not lightheaded. Pressures are in the 115-125 range. 3. Hyperlipidemia: Tolerating statin well. 4. He is at risk for skin breakdown in view of the right hemiparesis and reduced activity: no evidence of skin breakdown. 5. Recent hypokalemia: Potassium initially was normal and upon repeat it was slightly low at 3.4. 6. Abnormal chest X-ray with pleural effusion 7. Wheezing/bronchospasm by report from [facility]: He is receiving breathing treatments and seems to be tolerating these well. Denies any cough. Exam Vital Signs: Temperature 98.3 F 07/18/17 08:00 Pulse Rate 63 07/18/17 08:00 Respiratory Rate 16 07/18/17 10:55 Blood Pressure 112/65 07/18/17 08:00 Pulse Oximetry 97 07/18/17 08:00 Height/Weight/BMI: Height 1.73 m Weight 104.7 kg Body Mass Index 35.1 Comments: The patient is awake, alert and oriented and in no acute distress. His expressive dysphasia continues to be an issue. He tends to laugh and according to his has a good sense of humor. Pupils are equal. The neck is supple. Chest: Clear to auscultation bilaterally. I currently do not hear any wheezes Cor: RR with no gallop, click nor murmur Abd: soft with normo-active bowel sounds. There are no masses, no tenderness and no guarding. Extremities: There is trace edema. Neurologically he is improved with regard to right facial droop. Can raise right arm against resistance. Fine motor is poor on right upper extremity. Able to ambulate reasonably well. Results IRU - Labs Labs: Have reviewed labs and other providers notes. IRU A/P (1) Acute ischemic left MCA stroke Current visit: Yes Status: Acute No evidence of progression of stroke. Remains on 325 mg aspirin daily which is a new dose for him. No evidence of acute bleeding. (2) Benign essential hypertension Current visit: Yes Status: Chronic Blood pressures are well controlled on the current regimen. (3) Hyperglycemia Current visit: Yes Status: Acute He does not have evidence of diabetes and his sugars have been well controlled. Likely this was partially diet related. (4) Hyperlipidemia Qualifiers: Hyperlipidemia type: mixed hyperlipidemia Qualified Code(s): E78.2 - Mixed hyperlipidemia Current visit: Yes Status: Chronic Currently tolerating the new Statin well. Reviewed indications with his to include plaque stabilization as well as lowering cholesterol. DVT Prophylaxis: Lovenox Resuscitation Status: Full Code - Course Hospital Course: Silas Alba MD: 07/18/17 11:15 Neurologically he is somewhat improved especially with regard to right-sided facial droop. Able to ambulate reasonably well. No evidence of decline neurologically. Blood pressures well controlled. - Interventions to Obtain Goals PT Treatment Plan: Balance/Proprioception, Functional Activities, Gait Training , Patient/Family Education, Therapeutic Exercise OT Treatment Plan: ADL (Basic Care), Balance Training, Ther. Exercise for ADL Goals Progress/Modifications: Time spent with patient and on floor reviewing data and documentin min Barriers to dismissal: Endurance, balance, ADLs Medical decision-making: Discussed the case on several occasions with the patient's today. She has several questions regarding appropriate use of anticoagulants, statins etc. Also had questions about his breathing situation. Sounds as though he may well have underlying sleep apnea syndrome based on her description but we are not in a position to test that firmly at this time. Prior to dismissal we will likely do an overnight oximetry.
--- NOTE | 2017-07-18 11:28 | IRU Plan of Care ---
U Overall Plan of Care - Date Date: 07/18/17 - Patient Impairments (1) Acute ischemic left MCA stroke Code(s): I63.512 - Cerebral infarction due to unspecified occlusion or stenosis of left middle cerebral artery Status: Acute Classification: Present on IRF Admission, IRF Tx That Should Address Diagnosis, Diagnosis Requiring Medical Follow Up (2) Benign essential hypertension Code(s): I10 - Essential (primary) hypertension Status: Chronic Classification: Present on IRF Admission, IRF Tx That Should Address Diagnosis, Diagnosis Requiring Medical Follow Up (3) Expressive dysphasia Code(s): R47.02 - Dysphasia Status: Acute Classification: Present on IRF Admission, IRF Tx That Should Address Diagnosis, Diagnosis Requiring Medical Follow Up - Relevant Changes Relevant Changes: No Reviewed: I have reviewed the patient's information and concur with the finding and results of the pre-admission screen. Certification: I certify the patient for rehabilitation. - Medical Prognosis Medical Prognosis: Good Vital Signs: Last Vital Signs Temp 98.3 F 07/18/17 08:00 Pulse 63 07/18/17 08:00 Resp 16 07/18/17 10:55 BP 112/65 07/18/17 08:00 Pulse Ox 97 07/18/17 08:00 - Anticipated Interventions Anticipated Interventions: The patient requires inpatient IRF care for PT, OT, and/or ST for residuals remaining from acute left MCA stroke resulting in muscular weakness and strength deficits. Strength Deficits: Right Upper Extremity, Right Lower Extremity - Current Functional Status Failed Alternative Therapy: Arrived from Acute Care Patient Requires: The patient requires oversight by rehabilitation physician to manage their rehabilitation treatment plan and multidisciplinary approach to care that can only be provided in an IRF and requires a multidisciplinary approach to care, provided by professional PTs, OTs, STs, rehabilitation nurses, and may require STs, dieticians, and RTS. This is not available in lesser levels of care. Speech-Language Pathology Minutes: 30 Physical Therapy Minutes: 90 Occupational Therapy Minutes: 90 Therapy: The patient is to receive therapy at least [address] Treatment Plan: Swallow Retraining/Exercises, Swallow Precautions, Modified Diet, Oral Motor Exercise, Communication Retraining ST Treatment Plan Duration: Three Weeks ST Treatment Plan Frequency: Five Times Per Week - Anticipated LOS/Outcomes Anticipated Functional Outcome: It is anticipated the patient will be able to return to his home with modified independent functioning for ambulation, transfers and ADLs. Anticipated Length of Stay (days): 14 Anticipated DC Destination: Home, Self Care, Home Health Service Home Safety Plan: The patient will be provided with the development of a Home Safety Plan for return to a home or home-like environment and and to ensure safety post discharge. - Plan to Avoid Complications Barriers to Attaining Goals: Weakness, Balance, Endurance Plan to Avoid Complications: The patient cannot receive this care in a lesser intensive setting such as Jail or Outpatient Therapy due to the patient requiring the following : 24 rehabilitation nursing monitoring of neurologic status, blood pressures, blood sugars as well as oxygenation. .
[2017-07-18] MEDS: MELATONIN 5 MG TABLET PO SCH (21:40)
[2017-07-18] MEDS: ATORVASTATIN 40 MG TABLET PO SCH (21:40)
[2017-07-19] MEDS: DOCUSATE SODIUM 100 MG CAPSULE PO SCH ×2 (08:19→21:40)
[2017-07-19] MEDS: AMLODIPINE 5 MG TABLET PO SCH (08:19)
[2017-07-19] MEDS: ASPIRIN *EC* 81 MG TABLET PO SCH (08:19)
[2017-07-19] MEDS: ENOXAPARIN 40 MG/0.4 ML INJECTION SQ SCH (08:20)
[2017-07-19] MEDS: NICOTINE PATCH REMOVAL TD SCH (08:22)
[2017-07-19] MEDS: BUDESONIDE/FORMOTEROL 80/4.5mcg INHALER IH SCH ×2 (09:36→20:34)
--- NOTE | 2017-07-19 11:07 | IRU Progress Note ---
- Subjective/Serverity of Illness Quan continues to work diligently with therapy. He is also working with speech therapy regarding his expressive dysphagia. He denies any chest pain. Denies current shortness of breath. His speech is somewhat improved I believe. He denies any cough. His appetite remains good. He seems to be fairly cheerful at the present time. Update on medical issues: 1. New left hemispheric CVA with right hemiparesis: Remains on full adult dose of aspirin daily. No evidence of progression. Right face droop perhaps a bit better. Continues to be very weak and right upper extremity although can lift the arm against resistance. Fine motor movement reduced right hand. 2. Hypertension: Blood pressures reviewed and seem to be adequate on current medications. 3. Hyperlipidemia: Tolerating statin well. 4. He is at risk for skin breakdown in view of the right hemiparesis and reduced activity: no evidence of skin breakdown. This remains stable. 5. Recent hypokalemia: Potassium initially was normal and upon repeat it was slightly low at 3.4. 6. Abnormal chest X-ray with pleural effusion: Denies any current dyspnea. I do not hear any crackles and do not hear any reduced breath sounds in the bases. 7. Wheezing/bronchospasm by report from [place]: At the present time we do not hear any wheezes. He denies any current dyspnea. Exam Vital Signs: Temperature 97.8 F 07/19/17 08:00 Pulse Rate 57 L 07/19/17 08:00 Respiratory Rate 16 07/19/17 09:37 Blood Pressure 122/77 07/19/17 08:00 Pulse Oximetry 95 07/19/17 08:00 Height/Weight/BMI: Height 1.73 m Weight 104.7 kg Body Mass Index 35.1 Comments: The patient is awake, alert and seems to be oriented and in no acute distress. Expressive dysphasia noted. Pupils are equal. The neck is supple. Chest: Clear to auscultation bilaterally. Currently do not hear any wheezes nor rales. Cor: RR with no gallop, click nor murmur Abd: soft with normo-active bowel sounds. There are no masses, no tenderness and no guarding. Extremities: No edema is noted. There are good pulses in both ankles. No cyanosis is present. Neurologic: Expressive dysphasia noted. Right facial droop present but improved. Can flex and extend right elbow against resistance. Fine motor movement right hand markedly reduced. IRU A/P (1) Acute ischemic left MCA stroke Current visit: Yes Status: Acute Continues to work with therapy and is slowly improving. (2) Benign essential hypertension Current visit: Yes Status: Chronic Blood pressures are reviewed and look good at the present time on the current medications. Denies any lightheadedness. (3) Expressive dysphasia Current visit: Yes Status: Acute His expressive dysphagia may be slowly improving. He is working diligently with speech therapy in this regard. DVT Prophylaxis: Lovenox Resuscitation Status: Full Code - Course Hospital Course: Silas Alba MD: 07/18/17 11:15 Neurologically he is somewhat improved especially with regard to right-sided facial droop. Able to ambulate reasonably well. No evidence of decline neurologically. Blood pressures well controlled. 07/19/17 11:07 He is working well with therapy. No evidence of neurologic deterioration. Blood pressures are controlled. He continues to ambulate reasonably well. Final or movement right upper extremity significant reduced as before. - Interventions to Obtain Goals PT Treatment Plan: Balance/Proprioception, Functional Activities, Gait Training , Patient/Family Education, Therapeutic Exercise OT Treatment Plan: ADL (Basic Care), Balance Training, Ther. Exercise for ADL Goals Progress/Modifications: Time spent with patient and on floor reviewing data and documentin min Barriers to dismissal: Right upper extremity movement, endurance, confidence Medical decision-making: Have reviewed his overall medical situation. We will continue with therapy. No evidence of pulmonary nor neurologic decline. He denies any chest pains. Labs are stable.
[2017-07-19] MEDS: ATORVASTATIN 40 MG TABLET PO SCH (21:40)
[2017-07-19] MEDS: MELATONIN 5 MG TABLET PO SCH (21:40)
[2017-07-20] MEDS: NICOTINE PATCH REMOVAL TD SCH (08:37)
[2017-07-20] MEDS: ASPIRIN *EC* 81 MG TABLET PO SCH (08:56)
[2017-07-20] MEDS: ENOXAPARIN 40 MG/0.4 ML INJECTION SQ SCH (08:56)
[2017-07-20] MEDS: AMLODIPINE 5 MG TABLET PO SCH (08:56)
[2017-07-20] MEDS: DOCUSATE SODIUM 100 MG CAPSULE PO SCH ×2 (10:42→20:10)
[2017-07-20] MEDS: BUDESONIDE/FORMOTEROL 80/4.5mcg INHALER IH SCH ×2 (11:53→19:51)
[2017-07-20] MEDS: ATORVASTATIN 40 MG TABLET PO SCH (20:09)
[2017-07-20] MEDS: MELATONIN 5 MG TABLET PO SCH (20:10)
[2017-07-21] MEDS: AMLODIPINE 5 MG TABLET PO SCH (08:46)
[2017-07-21] MEDS: ASPIRIN *EC* 81 MG TABLET PO SCH (08:46)
[2017-07-21] MEDS: ENOXAPARIN 40 MG/0.4 ML INJECTION SQ SCH (08:47)
[2017-07-21] MEDS: DOCUSATE SODIUM 100 MG CAPSULE PO SCH ×2 (08:47→21:11)
[2017-07-21] MEDS: NICOTINE PATCH REMOVAL TD SCH (08:47)
[2017-07-21] MEDS: BUDESONIDE/FORMOTEROL 80/4.5mcg INHALER IH SCH (10:05)
--- NOTE | 2017-07-21 12:06 | IRU Progress Note ---
- Subjective/Serverity of Illness Quan was evaluated in his room on the IRU. He continues to cooperate with therapy. He is working with physical therapy, occupational therapy and speech therapy. There has been progress. He is cooperative. He does have some reduced endurance at times. Also has difficulty with cognition in understanding recommendations and cueing at times. With regard to his pulmonary status, he is on Symbicort. He states that he did not use any inhalers at home. His lungs have been clear. I think we will discontinue this at present. Continues to have difficulty with expression. Neurologically he is otherwise unchanged. Update on medical issues: 1. New left hemispheric CVA with right hemiparesis: He is tolerating 325 mg of aspirin daily which is an increased dose compared to home. Has had no new neurologic symptoms nor signs. Does have difficulty with comprehension which may be due to receptive dysphasia. He is cooperative with therapies. 2. Hypertension: Blood pressures are reviewed and are stable. 3. Hyperlipidemia: He is newly on a statin and seems to tolerate it adequately. 4. He is at risk for skin breakdown in view of the right hemiparesis and reduced activity: He is more active. At the present time we do not see any evidence of skin breakdown. 5. Recent hypokalemia: We will reassess down the road. 6. Abnormal chest X-ray with pleural effusion: His lungs remain clear at the present time. We will discontinue the Symbicort. 7. Wheezing/bronchospasm by report from [place]: Currently denies any evidence of wheezing, shortness of breath nor cough. We will stop Symbicort. Exam Vital Signs: Temperature 97.7 F 07/21/17 08:00 Pulse Rate 66 07/21/17 08:00 Respiratory Rate 16 07/21/17 10:02 Blood Pressure 140/71 H 07/21/17 08:00 Pulse Oximetry 97 07/21/17 08:00 Height/Weight/BMI: Height 1.73 m Weight 104.7 kg Body Mass Index 35.1 Comments: The patient is awake, alert and oriented and in no acute distress. He is cooperative. Initially he seemed like he did not understand my question regarding use of inhalers at home. He subsequently did understand. Pupils are equal. The neck is supple. Chest: Clear to auscultation bilaterally. Cor: RR with no gallop, click nor murmur Abd: soft with normo-active bowel sounds. There are no masses, no tenderness and no guarding. Extremities: No edema is noted. Neurologic: The patient's right upper extremity continues to be weak. He has very minimal fine motor movement in the right hand. Can flex and extend the right elbow reasonably well but it is weaker than the left. It is judged to be unchanged from before. Right facial droop continues to be present. He does have expressive dysphagia. Right lower extremity was examined. He is able to flex fairly well against resistance. He is ambulatory with assistance. IRU A/P (1) Acute ischemic left MCA stroke Current visit: Yes Status: Acute He is neurologically stable. He is working with therapies. Team meeting today will be undertaken to assess his overall progress from multiple disciplines. (2) Benign essential hypertension Current visit: Yes Status: Chronic Blood pressures are currently well controlled. (3) Expressive dysphasia Current visit: Yes Status: Acute Continues to work with speech therapy. DVT Prophylaxis: Lovenox Resuscitation Status: Full Code - Course Hospital Course: Silas Alba MD: 07/18/17 11:15 Neurologically he is somewhat improved especially with regard to right-sided facial droop. Able to ambulate reasonably well. No evidence of decline neurologically. Blood pressures well controlled. 07/19/17 11:07 He is working well with therapy. No evidence of neurologic deterioration. Blood pressures are controlled. He continues to ambulate reasonably well. Final or movement right upper extremity significant reduced as before. 07/21/17 12:37 Mr. Santos continues to work with therapy. His blood pressures are fairly well controlled. No neurologic decline. Tolerating adult aspirin adequately. Lungs are clear. We will stop Symbicort. - Interventions to Obtain Goals PT Treatment Plan: Balance/Proprioception, Functional Activities, Gait Training , Patient/Family Education, Therapeutic Exercise OT Treatment Plan: ADL (Basic Care), Balance Training, Ther. Exercise for ADL Goals Progress/Modifications: Time spent with patient and on floor reviewing data and documentin min Barriers to dismissal: Cognition, endurance Medical decision-making: We reviewed his pulmonary status today. He had wheezes while in [place]. His lungs have been clear. He was not on an inhaler at home. For this reason, we'll stop Symbicort today. Progress is somewhat hampered by his receptive aphasia/dysphagia. He has however making progress. Continue to work with him with PT, OT and speech therapy. Blood pressures are reviewed and look good.
--- NOTE | 2017-07-21 14:35 | IRU Team Meeting ---
IRU Team Meeting - Nursing Vital Signs: Vital Signs - 24 hr 07/20/17 16:00 07/20/17 19:51 07/20/17 20:10 Temperature 97.2 F 98.4 F Pulse Rate 59 L 72 Respiratory Rate 16 16 18 Blood Pressure 109/67 129/73 Pulse Oximetry 97 98 07/21/17 08:00 07/21/17 10:02 Temperature 97.7 F Pulse Rate 66 Respiratory Rate 16 16 Blood Pressure 140/71 H Pulse Oximetry 97 Current Medications: Amlodipine Besylate (Norvasc) 5 mg PO DAILY [facility] Last Admin: 07/21/17 08:46 Dose: 5 mg Aspirin (Ecotrin) 81 mg PO DAILY [facility] Last Admin: 07/21/17 08:46 Dose: 81 mg Atorvastatin Calcium (Lipitor) 80 mg PO HS [facility] Last Admin: 07/20/17 20:09 Dose: 80 mg Docusate Sodium (Colace) 100 mg PO BID [facility] Last Admin: 07/21/17 08:47 Dose: 100 mg Enoxaparin Sodium (Lovenox) 40 mg SQ DAILY [facility] Last Admin: 07/21/17 08:47 Dose: 40 mg Melatonin (Melatonin) 5 mg PO HS [facility] Last Admin: 07/20/17 20:10 Dose: 5 mg Nicotine (Nicoderm) 21 mg TD DAILY PRN Nicotine (Nicotine Patch Removal) 1 removal TD DAILY [facility] Last Admin: 07/21/17 08:47 Dose: Not Given Current Medical Issues: Recent left middle cerebral artery stroke affecting his right side, hypertension , bronchospasm (now resolved), hyperlipidemia Comments: I certify that I personally led the interdisciplinary team meeting and agree with comments, barriers and goals indicated. Team meeting was held in the patient's room with the patient and the following family members present: Mr. Santos continues to work hard with speech therapy, occupational therapy and physical therapy. He is improving with regard to all 3 but particularly improving with regard to physical therapy. He denies any chest pain. He had some bronchospasm while in [place] and has been on Symbicort. We will discontinue that as his lungs are clear. He denies any chest pain. He is tolerating his adult aspirin well without known side effects. - Dietary He is tolerating his nectar thick liquids and cardiac diet well. Dietitian is monitoring and will instruct patient and family in this regard. Intake is not quite adequate for his needs. Snacks are provided. 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 Speech therapy is working with him diligently and he is improving. He is currently on a soft/ chopped diet with nectar thick liquids. He is working on imitation of oral motor movements and naming. A communication board is being worked with. In addition, family training will occur closer to dismissal. - Physical Therapy Comments: He is working with physical therapy and doing well. He is modified independent functioning for bed/chair/wheelchair. He is standby assist to supervision for ambulation over thousand feet. He is standby assist to supervision for stair climbing of 6 stairs. Car transfers are with contact-guard assistance. He is demonstrating good functional ability but needs additional endurance as well as safety awareness. - Occupational Therapy Comments: He is working diligently with occupational therapy. He is standby assist to supervision for eating, grooming, lower body dressing, bathing ability. He is independent for upper body dressing. He is modified independent for toileting and toilet transfer assistance. He has improved with regard to right upper extremity strength and grasping. They're focusing on right hand fine motor movement and grasping. - Goals Goals: 1. Increase in right sided awareness. 2. Use of compensatory strategies and communication book successfully 50% of the time 3. Family training regarding speech and communication as well as addition of supportive applications to his phone. - Barriers to Discharge Barriers to Attaining Goals: Other (safety and coordination) - Care Plan Anticipated DC Destination: Home, Self Care I have led this team conference and agree with the plan. Anticipated Length of Stay (days): 6
[2017-07-21] MEDS: MELATONIN 5 MG TABLET PO SCH (21:11)
[2017-07-21] MEDS: ATORVASTATIN 40 MG TABLET PO SCH (21:11)
[2017-07-22] MEDS: AMLODIPINE 5 MG TABLET PO SCH (08:48)
[2017-07-22] MEDS: ENOXAPARIN 40 MG/0.4 ML INJECTION SQ SCH (08:48)
[2017-07-22] MEDS: DOCUSATE SODIUM 100 MG CAPSULE PO SCH ×2 (08:48→20:01)
[2017-07-22] MEDS: ASPIRIN *EC* 81 MG TABLET PO SCH (08:48)
[2017-07-22] MEDS: NICOTINE PATCH REMOVAL TD SCH (08:48)
[2017-07-22 13:52] VITALS: BMI 34.9
--- NOTE | 2017-07-22 14:50 | IRU Progress Note ---
- Subjective/Serverity of Illness Quan was evaluated in his room with speech therapy in progress. He is improving with speech therapy. Continues to have a lot of expressive dysphagia. He also continues to work with physical therapy and occupational therapy. He denies any new symptoms and specifically denies any cough, sputum, shortness of breath, chest pain. His appetite is good. It is noted that his white count is suddenly elevated at 18,000 for uncertain reasons. He has no sign of infection clinically. Update on medical issues: 1. New left hemispheric CVA with right hemiparesis: He is very cooperative with therapies and is anxious to get home. Family involved as well with family training. 2. Hypertension: He is not having any episodes of hypotension nor hypertension. 3. Hyperlipidemia: He is newly on a statin and seems to tolerate it adequately. 4. He is at risk for skin breakdown in view of the right hemiparesis and reduced activity: Continues to do well without evidence of skin breakdown. 5. Recent hypokalemia: Replete potassium now normal at 4.2. 6. Abnormal chest X-ray with pleural effusion: Symbicort was discontinued yesterday and his lungs are clear to auscultation. 7. Wheezing/bronchospasm by report from [facility]: As noted, lungs remain clear. 8. Leukocytosis: He has a new white count elevation of 18,000 for uncertain reasons. There is no clinical sign of infection at present. Exam Vital Signs: Temperature 97.7 F 07/22/17 08:55 Pulse Rate 65 07/22/17 08:55 Respiratory Rate 16 07/22/17 08:55 Blood Pressure 117/67 07/22/17 08:55 Pulse Oximetry 95 07/22/17 08:55 Height/Weight/BMI: Height 1.73 m Weight 95.7 kg Body Mass Index 34.9 Comments: The patient is awake, alert and in no acute distress. He is unable to tell us if he is oriented or not. He is very engaging but does have severe expressive dysphagia. Pupils are equal. The neck is supple. Chest: Clear to auscultation bilaterally. Cor: RR with no gallop, click nor murmur Abd: soft with normo-active bowel sounds. There are no masses, no tenderness and no guarding. Extremities: No edema is noted. Results IRU - Labs Labs: Leukocytosis of 18,000 noted. Previous white count was 10,000. IRU A/P (1) Acute ischemic left MCA stroke Current visit: Yes Status: Acute Continues to progress with therapies and is cooperative and improving. (2) Benign essential hypertension Current visit: Yes Status: Chronic His blood pressures are well controlled at the present time. He is not experiencing excessively high nor low values. Denies lightheadedness. (3) Expressive dysphasia Current visit: Yes Status: Acute (4) Leukocytosis Qualifiers: Leukocytosis type: other Qualified Code(s): D72.828 - Other elevated white blood cell count Current visit: Yes Status: Acute Upon repeat CBC today, his white count is elevated 18,000. Uncertain etiology. No current clinical evidence of infection. He is afebrile. We'll plan to repeat this down the road. DVT Prophylaxis: Lovenox Resuscitation Status: Full Code - Course Hospital Course: Silas Alba MD: 07/18/17 11:15 Neurologically he is somewhat improved especially with regard to right-sided facial droop. Able to ambulate reasonably well. No evidence of decline neurologically. Blood pressures well controlled. 07/19/17 11:07 He is working well with therapy. No evidence of neurologic deterioration. Blood pressures are controlled. He continues to ambulate reasonably well. Final or movement right upper extremity significant reduced as before. 07/21/17 12:37 Mr. Santos continues to work with therapy. His blood pressures are fairly well controlled. No neurologic decline. Tolerating adult aspirin adequately. Lungs are clear. We will stop Symbicort. 07/22/17 14:51 Lungs remain clear. Continues to work with therapies. Blood pressures are good. No neurologic decline compared to baseline. White count 18,000 of uncertain etiology. No sign of infection clinically. - Interventions to Obtain Goals PT Treatment Plan: Balance/Proprioception, Functional Activities, Gait Training , Patient/Family Education, Therapeutic Exercise OT Treatment Plan: ADL (Basic Care), Balance Training, Ther. Exercise for ADL Goals Progress/Modifications: Time spent with patient and on floor reviewing data and documentin min Barriers to dismissal: Expressive dysphagia, leukocytosis Medical decision-making: We again reviewed his overall situation. His white count is up to 18,000. Previously was 10,000. He is not on corticosteroids. He denies any cough or sputum. His lungs are clear. There is no clinical evidence of infection. I'm uncertain as to why the white count is elevated. We will repeat this down the road.
[2017-07-22] MEDS: MELATONIN 5 MG TABLET PO SCH (20:00)
[2017-07-22] MEDS: ATORVASTATIN 40 MG TABLET PO SCH (20:00)
[2017-07-23] MEDS: ASPIRIN *EC* 81 MG TABLET PO SCH (08:55)
[2017-07-23] MEDS: DOCUSATE SODIUM 100 MG CAPSULE PO SCH ×2 (08:55→20:48)
[2017-07-23] MEDS: AMLODIPINE 5 MG TABLET PO SCH (08:55)
[2017-07-23] MEDS: ENOXAPARIN 40 MG/0.4 ML INJECTION SQ SCH (08:56)
[2017-07-23] MEDS: NICOTINE PATCH REMOVAL TD SCH (08:57)
[2017-07-23] MEDS: ATORVASTATIN 40 MG TABLET PO SCH (20:47)
[2017-07-23] MEDS: MELATONIN 5 MG TABLET PO SCH (20:47)
[2017-07-24] MEDS: AMLODIPINE 5 MG TABLET PO SCH (08:57)
[2017-07-24] MEDS: DOCUSATE SODIUM 100 MG CAPSULE PO SCH ×2 (08:57→20:16)
[2017-07-24] MEDS: ASPIRIN *EC* 81 MG TABLET PO SCH (08:58)
[2017-07-24] MEDS: POLYETHYL GLYCOL 3350 17gm PACKET PO SCH (09:00)
[2017-07-24] MEDS: ENOXAPARIN 40 MG/0.4 ML INJECTION SQ SCH (10:54)
[2017-07-24] MEDS: NICOTINE 21 MG PATCH TD PRN ×2 (10:54→10:58)
[2017-07-24] MEDS: NICOTINE PATCH REMOVAL TD SCH (10:58)
[2017-07-24] MEDS: MELATONIN 5 MG TABLET PO SCH (20:16)
[2017-07-24] MEDS: ATORVASTATIN 40 MG TABLET PO SCH (20:16)
[2017-07-24] MEDS ORDERED: BISACODYL 10 MG SUPPOSITORY RECTALLY PRN (20:37)
[2017-07-25] MEDS: ASPIRIN *EC* 81 MG TABLET PO SCH (08:33)
[2017-07-25] MEDS: ENOXAPARIN 40 MG/0.4 ML INJECTION SQ SCH (08:33)
[2017-07-25] MEDS: DOCUSATE SODIUM 100 MG CAPSULE PO SCH ×2 (08:33→21:44)
[2017-07-25] MEDS: NICOTINE PATCH REMOVAL TD SCH (08:33)
[2017-07-25] MEDS: AMLODIPINE 5 MG TABLET PO SCH (08:33)
[2017-07-25] MEDS: POLYETHYL GLYCOL 3350 17gm PACKET PO SCH (10:50)
--- NOTE | 2017-07-25 10:57 | IRU Progress Note ---
- Subjective/Serverity of Illness Quan was evaluated in his room. I spent some time in conversation with him to encourage him to verbalize. Clearly he knows what he wants to say but finds it very difficult to get it out. He is working diligently with speech therapy in this regard. He seems to be cheerful and is positive in his outlook as nearly as I can determine. With regard to his white count elevation of 18,000 last week, I advised him of this. He does not express any signs or symptoms of an acute infection. Specifically I went 3 review of systems with him and he denies any cough, sputum , headache, skin lesions, dysuria, frequency nor any GI complaints. A repeat white count today is improved at 13,000. Exam also is negative for any evidence of infection. He continues to work with therapy for both PT, OT and speech therapy and is making improvement. Exam Vital Signs: Temperature 98.1 F 07/25/17 08:19 Pulse Rate 76 07/25/17 08:19 Respiratory Rate 16 07/25/17 08:19 Blood Pressure 114/69 07/25/17 08:19 Pulse Oximetry 95 07/25/17 08:19 Height/Weight/BMI: Height 1.73 m Weight 95.7 kg Body Mass Index 34.9 Comments: The patient is awake, alert. Does have significant expressive dysphagia. However he tries to verbalize and at times can get some words out. Pupils are equal. The neck is supple. Chest: Clear to auscultation bilaterally. Cor: RR with no gallop, click nor murmur Abd: soft with normo-active bowel sounds. There are no masses, no tenderness and no guarding. Extremities: No edema is noted. There are good pulses in both ankles. No cyanosis is present. Exam of skin feels to reveal any evidence of lesions, boils etc. that might explain his white count. Neurologic continues to have reduced fine motor movement involving the right upper extremity. Ambulation is reasonably good. Results IRU - Labs Labs: Repeat white count is improved to 13,000. IRU A/P (1) Acute ischemic left MCA stroke Current visit: Yes Status: Acute Continues to have multiple deficits from his stroke. Does have expressive dysphagia. He is improving and working with therapies. (2) Benign essential hypertension Current visit: Yes Status: Chronic His blood pressures are looking good. Seems to have adequate perfusion pressure. (3) Expressive dysphasia Current visit: Yes Status: Acute (4) Leukocytosis Qualifiers: Leukocytosis type: other Qualified Code(s): D72.828 - Other elevated white blood cell count Current visit: Yes Status: Acute Cause of his leukocytosis is not clear. He was up to 18,000 leg last week. Careful exam has failed to reveal any evidence of infection and repeat white count is improved at 13,000. DVT Prophylaxis: Lovenox Resuscitation Status: Full Code - Course Hospital Course: Silas Alba MD: 07/18/17 11:15 Neurologically he is somewhat improved especially with regard to right-sided facial droop. Able to ambulate reasonably well. No evidence of decline neurologically. Blood pressures well controlled. 07/19/17 11:07 He is working well with therapy. No evidence of neurologic deterioration. Blood pressures are controlled. He continues to ambulate reasonably well. Final or movement right upper extremity significant reduced as before. 07/21/17 12:37 Mr. Santos continues to work with therapy. His blood pressures are fairly well controlled. No neurologic decline. Tolerating adult aspirin adequately. Lungs are clear. We will stop Symbicort. 07/22/17 14:51 Lungs remain clear. Continues to work with therapies. Blood pressures are good. No neurologic decline compared to baseline. White count 18,000 of uncertain etiology. No sign of infection clinically. 07/25/17 10:57 Continues to improve with therapies. No new neurologic findings are noted compared to baseline. White count improved to 13,000 without definite evidence of infection. - Interventions to Obtain Goals PT Treatment Plan: Balance/Proprioception, Functional Activities, Gait Training , Patient/Family Education, Therapeutic Exercise OT Treatment Plan: ADL (Basic Care), Balance Training, Ther. Exercise for ADL Goals Progress/Modifications: Time spent with patient and on floor reviewing data and documentin min Barriers to dismissal: Endurance, self care ability Medical decision-making: I again reviewed his white count which is improved from 18,000 down to 13,000. I again went through a review of systems with all and could not find any evidence of infection. His lungs are clear. There is no significant heart murmur. Skin exam fails to reveal any evidence of abscess or lesions. He has no dysuria and no frequency. His white count is improved. Etiology is not clear. Also reviewed medications and, to my knowledge, he has not received any corticosteroids.
[2017-07-25] MEDS: NICOTINE 21 MG PATCH TD PRN (16:05)
[2017-07-25] MEDS: MELATONIN 5 MG TABLET PO SCH (21:44)
[2017-07-25] MEDS: ATORVASTATIN 40 MG TABLET PO SCH (21:44)
[2017-07-26] MEDS: AMLODIPINE 5 MG TABLET PO SCH (08:28)
[2017-07-26] MEDS: ASPIRIN *EC* 81 MG TABLET PO SCH (08:28)
[2017-07-26] MEDS: ENOXAPARIN 40 MG/0.4 ML INJECTION SQ SCH (08:28)
[2017-07-26] MEDS: DOCUSATE SODIUM 100 MG CAPSULE PO SCH ×2 (08:28→21:26)
[2017-07-26] MEDS: POLYETHYL GLYCOL 3350 17gm PACKET PO SCH (08:28)
[2017-07-26] MEDS: NICOTINE PATCH REMOVAL TD SCH (08:31)
--- NOTE | 2017-07-26 10:03 | IRU Progress Note ---
- Subjective/Serverity of Illness Quan remains enthusiastic and doing well. His ambulatory ability is good. Still working on a lot of improvement with regard to expressive dysphasia. In addition right upper extremity has markedly reduced fine motor movement since the stroke. Slow improvement noted. He denies any chest pain, cough, dyspnea etc. His appetite is good. Reports his bowels are moving adequately. Exam Vital Signs: Temperature 98.6 F 07/26/17 08:00 Pulse Rate 72 07/26/17 08:00 Respiratory Rate 16 07/26/17 08:00 Blood Pressure 104/66 07/26/17 08:00 Pulse Oximetry 96 07/26/17 08:00 Height/Weight/BMI: Height 1.73 m Weight 95.7 kg Body Mass Index 34.9 Comments: The patient is awake, alert and in no acute distress. Pupils are equal. The neck is supple. Chest: Clear to auscultation bilaterally. Cor: RR with no gallop, click nor murmur Abd: soft with normo-active bowel sounds. There are no masses, no tenderness and no guarding. Extremities: No edema is noted. Continues to struggle with expressive dysphagia. Some minor right face droop. Right upper extremity fine motor movement markedly diminished as before. IRU A/P (1) Acute ischemic left MCA stroke Current visit: Yes Status: Acute Continues to slowly improve and is cooperative with therapy. (2) Benign essential hypertension Current visit: Yes Status: Chronic Blood pressures are stable with adequate perfusion pressure. (3) Expressive dysphasia Current visit: Yes Status: Acute (4) Leukocytosis Qualifiers: Leukocytosis type: other Qualified Code(s): D72.828 - Other elevated white blood cell count Current visit: Yes Status: Acute We will repeat lab work in the morning in preparation for possible dismissal. White count was 13,000 at last check. DVT Prophylaxis: Lovenox Resuscitation Status: Full Code - Course Hospital Course: Silas Alba MD: 07/18/17 11:15 Neurologically he is somewhat improved especially with regard to right-sided facial droop. Able to ambulate reasonably well. No evidence of decline neurologically. Blood pressures well controlled. 07/19/17 11:07 He is working well with therapy. No evidence of neurologic deterioration. Blood pressures are controlled. He continues to ambulate reasonably well. Final or movement right upper extremity significant reduced as before. 07/21/17 12:37 Mr. Santos continues to work with therapy. His blood pressures are fairly well controlled. No neurologic decline. Tolerating adult aspirin adequately. Lungs are clear. We will stop Symbicort. 07/22/17 14:51 Lungs remain clear. Continues to work with therapies. Blood pressures are good. No neurologic decline compared to baseline. White count 18,000 of uncertain etiology. No sign of infection clinically. 07/25/17 10:57 Continues to improve with therapies. No new neurologic findings are noted compared to baseline. White count improved to 13,000 without definite evidence of infection. 07/26/17 10:02 We will reassess lab in the morning. His neurologic status is stable. - Interventions to Obtain Goals PT Treatment Plan: Balance/Proprioception, Functional Activities, Gait Training , Patient/Family Education, Therapeutic Exercise OT Treatment Plan: ADL (Basic Care), Balance Training, Ther. Exercise for ADL Goals Progress/Modifications: Medical decision-making: Continue to puzzle over what his white count was elevated. He is certainly doing well clinically. His appetite is good. There is no cough and no sputum. He has no dysuria and no frequency. He has been afebrile. We will reassess his blood work in the morning prior to anticipated dismissal in the next several days. Neurologically he has remained stable to improved.
[2017-07-26] MEDS: MELATONIN 5 MG TABLET PO SCH (21:26)
[2017-07-26] MEDS: ATORVASTATIN 40 MG TABLET PO SCH (21:26)
[2017-07-27 08:20] VITALS: BP 116/64; PULSE 64; RESP 16; TEMP 97.6; O2SAT 96
[2017-07-27] MEDS: DOCUSATE SODIUM 100 MG CAPSULE PO SCH (08:51)
[2017-07-27] MEDS: NICOTINE 21 MG PATCH TD PRN (08:51)
[2017-07-27] MEDS: AMLODIPINE 5 MG TABLET PO SCH (08:51)
[2017-07-27] MEDS: ASPIRIN *EC* 81 MG TABLET PO SCH (08:51)
[2017-07-27] MEDS: ENOXAPARIN 40 MG/0.4 ML INJECTION SQ SCH (08:52)
[2017-07-27] MEDS: NICOTINE PATCH REMOVAL TD SCH (08:52)
[2017-07-27] MEDS: POLYETHYL GLYCOL 3350 17gm PACKET PO SCH (08:52)
--- NOTE | 2017-07-27 11:50 | Discharge Instructions ---
Discharge Plan - Med Rec/Dispo Referrals/Follow Up: Alex Segal MD [Family Provider] - (Dr. Nancy Segal on 08/03/17 at 10:30 am for Hosp. follow-up. [address] [place] [id number]) Prescriptions: New Nicotine Patch [Nicoderm] 21 mg TD DAILY #14 patch Aspirin *EC* [Ecotrin] 81 mg PO DAILY tablet Melatonin 5 mg PO HS #0 tablet PEG 3350 17gm PACKET [Miralax] 17 gm PO DAILY packet Continue Docusate Sodium [Colace] 1 cap PO BID Amlodipine [Norvasc] 5 mg PO DAILY Budesonide/Formoterol Fumarate [Symbicort 80-4.5 Mcg Inhaler] 2 puff IH BID # 1 hfa.aer.ad Atorvastatin Calcium 80 mg PO HS Changed Ramelteon [Rozerem] 8 mg PO HS PRN #14 tablet PRN Reason: Insomnia Discontinued Albuterol/Ipratropium [Duoneb] 1 unit AEROSOL Q6H Albuterol/Ipratropium [Duoneb] 1 unit AEROSOL Q2HR PRN PRN Reason: Shortness Of Air/Wheezing Discharge Instructions/Outpatient Orders: Consulting Provider Discharge Instructions Location: Determined By Patient - Disposition 01 Discharged Home, Self-Care
--- NOTE | 2017-07-27 12:00 | IRU Progress Note ---
- Subjective/Serverity of Illness Quan was interviewed in his room on the acute rehabilitation unit. He is anxious to go home. He seems to be very stable. Continues to work with physical therapy, occupational therapy and speech therapy. Arrangements are made for outpatient treatment in [place] in these areas. Review of systems was queried. He denies any headaches, cough, sputum, shortness of breath, chest pain, nausea, vomiting, diarrhea or constipation. Exam Vital Signs: Temperature 97.6 F 07/27/17 08:00 Pulse Rate 64 07/27/17 08:00 Respiratory Rate 16 07/27/17 08:00 Blood Pressure 116/64 07/27/17 08:00 Pulse Oximetry 96 07/27/17 08:00 Height/Weight/BMI: Height 1.73 m Weight 95.7 kg Body Mass Index 34.9 Comments: The patient is awake, alert and in no acute distress. Continues to have severe expressive dysphagia. Pupils are equal. The neck is supple. Chest: Clear to auscultation bilaterally. Cor: RR with no gallop, click nor murmur Abd: soft with normo-active bowel sounds. There are no masses, no tenderness and no guarding. Extremities: No edema is noted. Neurologic, reduced fine motor movement right upper extremity, mild right facial droop and severe expressive dysphasia all remain stable. IRU A/P (1) Acute ischemic left MCA stroke Current visit: Yes Status: Acute He is neurologically stable at the present time. He will continue PT, OT and speech therapy as an outpatient. (2) Benign essential hypertension Current visit: Yes Status: Chronic Blood pressures are well controlled on the current regimen. (3) Expressive dysphasia Current visit: Yes Status: Acute (4) Leukocytosis Qualifiers: Leukocytosis type: other Qualified Code(s): D72.828 - Other elevated white blood cell count Current visit: Yes Status: Resolved Repeat white count is normal. DVT Prophylaxis: Lovenox Resuscitation Status: Full Code - Course Hospital Course: Silas Alba MD: 07/18/17 11:15 Neurologically he is somewhat improved especially with regard to right-sided facial droop. Able to ambulate reasonably well. No evidence of decline neurologically. Blood pressures well controlled. 07/19/17 11:07 He is working well with therapy. No evidence of neurologic deterioration. Blood pressures are controlled. He continues to ambulate reasonably well. Final or movement right upper extremity significant reduced as before. 07/21/17 12:37 Mr. Santos continues to work with therapy. His blood pressures are fairly well controlled. No neurologic decline. Tolerating adult aspirin adequately. Lungs are clear. We will stop Symbicort. 07/22/17 14:51 Lungs remain clear. Continues to work with therapies. Blood pressures are good. No neurologic decline compared to baseline. White count 18,000 of uncertain etiology. No sign of infection clinically. 07/25/17 10:57 Continues to improve with therapies. No new neurologic findings are noted compared to baseline. White count improved to 13,000 without definite evidence of infection. 07/26/17 10:02 We will reassess lab in the morning. His neurologic status is stable. 07/27/17 12:00 The patient is stable to be dismissed today. He is on amlodipine and we are stopping lisinopril and metoprolol which he was on at home. Arrangements have been made for outpatient PT, OT and speech therapy and orders written. - Interventions to Obtain Goals PT Treatment Plan: Balance/Proprioception, Functional Activities, Gait Training , Patient/Family Education, Therapeutic Exercise OT Treatment Plan: ADL (Basic Care), Balance Training, Ther. Exercise for ADL
--- NOTE | 2017-07-27 12:03 | Discharge Instructions ---
Discharge Plan - Med Rec/Dispo Referrals/Follow Up: Alex Segal MD [Family Provider] - (Dr. Nancy Segal on 08/03/17 at 10:30 am for Hosp. follow-up. [address] [place] [address]) Prescriptions: New Nicotine Patch [Nicoderm] 21 mg TD DAILY #14 patch Melatonin 5 mg PO HS #0 tablet PEG 3350 17gm PACKET [Miralax] 17 gm PO DAILY packet Aspirin [ASA] 325 mg PO DAILY #100 tablet Continue Docusate Sodium [Colace] 1 cap PO BID Amlodipine [Norvasc] 5 mg PO DAILY Budesonide/Formoterol Fumarate [Symbicort 80-4.5 Mcg Inhaler] 2 puff IH BID # 1 hfa.aer.ad Atorvastatin Calcium 80 mg PO HS Changed Ramelteon [Rozerem] 8 mg PO HS PRN #14 tablet PRN Reason: Insomnia Discontinued Albuterol/Ipratropium [Duoneb] 1 unit AEROSOL Q6H Albuterol/Ipratropium [Duoneb] 1 unit AEROSOL Q2HR PRN PRN Reason: Shortness Of Air/Wheezing Discharge Instructions/Outpatient Orders: Consulting Provider Discharge Instructions Location: Determined By Patient - Disposition 01 Discharged Home, Self-Care
--- NOTE | 2017-07-27 15:40 | Discharge Summary ---
Discharge Information Date of admission: 07/15/17 15:09 Anticipated date of discharge: 07/27/17 Attending Physician: Silas Alba MD Primary care physician: Alex Segal MD Consults: 07/15/17 15:42 Physician Consult [CONS] Routine Consulting Provider: Lian Rossi Reason For Exam: Medical management Ordering Provider has Notified Wedding Planning Internship: Rosey 07/15/17 20:37 Dietary Consult [CONS] Routine Comment: Reason For Exam: hyperglycemia - Discharge Diagnosis (1) Acute ischemic left MCA stroke Status: Acute (2) Benign essential hypertension Status: Chronic (3) Expressive dysphasia Status: Acute (4) Leukocytosis Status: Resolved - Laboratory Labs: 07/27/17 05:01 07/27/17 05:01 History of Present Illness HPI: 07/27/17 15:36 Mr. Santos is a very pleasant and cooperative 61-year-old male whose primary care physician is Dr. Alex Hooks in [place]. Referring physician is Dr. Toby Tijerina from [facility]. He was in his usual state of health prior to this event and was very independent. He went to meet a friend in [place] on . While they were having coffee he noted sudden onset of confusion and difficulty with speech. EMS was called and he was taken to the emergency department in [place]. Blood sugar was 147. Stroke activation was called. NIH stroke scale was 17. Family was not available for discussion. Stat CT scan was negative. He had significant right hemiparesis and expressive dysphasia. He was given TPA after consultation was made with [facility] neurology. Last known wakefulness with normal activity was 10 AM on the day of the event. TPA was begun at 1315 hrs. He was then transferred emergently to [facility] Neurological ICU. MRI on July 11 showed a large left middle cerebral artery territory infarct without evidence of hemorrhage nor mass effect. Echocardiogram was unremarkable without evidence for cardiac source of embolus. CT angiogram of the head and neck was negative for occlusion. Initial creatinine was 1.57 which improved to normal. His blood sugars were a bit high in [place] on these were monitored here as well. On July 10 his A1c was 6.1%. Creatinine returned to normal. He had been on aspirin 81 mg daily prior to the event. Recommendation from neurology was to increase this to 325 mg daily. No other anticoagulation was recommended. In addition, he had not been on a statin. He was started on atorvastatin. His blood pressure medication was changed from lisinopril plus metoprolol to amlodipine. He was admitted to the acute inpatient rehabilitation unit on 07/15/2017. 07/27/17 15:38 Hospital Course This is a general summary of the patient's hospital course. For more details refer to the complete medical record. The patient was admitted to the acute inpatient rehabilitation unit for an intensive individualized program of occupational therapy, physical therapy and speech therapy as well as 24 rehabilitation nursing to monitor his neurologic status and blood pressures. Medical supervision was provided by the hospitalist service as well as Dr. Alba, biomedical equipment tech of acute rehabilitation. The patient improved significantly while on rehabilitation. He was seen by speech therapy who worked with him regarding his expressive dysphasia as well as concerns about pocketing food in the right cheek. He improved in these areas and will continue to require outpatient speech therapy in this regard. He was seen by occupational therapy. At the time of admission he was eating with standby assistance and ultimately was eating with modified independent functioning. Grooming was initially moderate assistance and subsequently independent functioning. Bathing was minimal assistance initially and modified independent subsequently. Upper body dressing required moderate assistance initially and ultimately was independent functioning. Lower body dressing initially was minimal assistance and subsequently modified independent functioning. Toileting assistance was initially standby assistance and ultimately independent functioning. Physical therapy was consulted. He was functioning at a standby assistance level for bed/chair/wheelchair transfers initially. Ultimately he was independent in these transfers. He was able to perform car transfers with modified independent level of functioning. He was able to climb 6 stairs at standby assistance and ultimately was independent with 12 stairs. From an ambulation standpoint he was able to walk with contact guard assistance initially 375 feet. Ultimately he was totally independent with ambulation at 1427 feet. Medically speaking, we did monitor his blood pressures which remained stable and good throughout. We also monitored his neurologic status which did not deteriorate. Had some improvement in his right face droop. Continues to have significant fine motor movement problem with the right upper extremity. Also continues to have significant problem with expressive dysphagia. He is eating in a safe manner at present. Finally, we did monitor his blood sugars. In general they stayed under control around 100 - 130. Occasional values were higher before meals. He was instructed in a consistent carbohydrate diet and it is felt that if he can stay on this limited diet his sugars likely will do well. Follow-up blood sugars and A1c would be appropriate at some point. Arrangements were made for him to see occupational therapy, physical therapy and speech therapy as an outpatient in [place]. A prescription for 30 days of his atorvastatin and 30 days of amlodipine was given to the patient but he will require refills on this from Dr. Hooks subsequently. Arrangements were made for follow-up with Dr. Hooks in [place]. Hospital course: IMPRESSION Acute left MCA CVA: ischemic 07/10/17 s/p TPA -Right hemiparesis, left gaze, expressive aphasia, dysarthria, confusion, dysphagia -ASA 325, statin Leukocytosis Hypernatremia (had been on hypertonic saline) Hypokalemia - resolved Thromboyctopenia - resolved Hypertension Hyperlipidemia Chronic tobacco use, suspect underlying COPD Hyperglycemia without dx of diabetes Obesity BMI >30 PLAN Dysphagia - ST to eval. Antiplatelet - ASA 325 mg (prior to stroke he was taking 81 mg) Statin - atorvastatin Hypernatremia - not unexpected given hypertonic infusion - recheck BMP + mg in am. Rt arm swelling - check venous doppler. HTN - Norvasc. Goal is SBP <160. Suspect COPD - Symbicort BID + DuoNeb PRN. Nicotine patch PRN. Will ask RT to provide smoking cessation counseling. Agree with discontinuing Rozerem. Therapy orders per attending. Thank you for this consult - we will follow Mr. Santos along with you during his IRU course. [facility] record review: CT/MRI showed a large acute ischemic left MCA stroke and associated cortical edema without mass effect/hemorrhage. CTA head/neck with contrast: acute left MCA infarct; minimal bilateral carotid bifurcation but no hemodynamically significant stenosis, chronic maxillary and sphenoid sinus disease. Prior to the stroke he was on a regular diet but this was changed to mechanical soft and nectar thick liquids. 2D echo with bubble study: EF 55-65%, no wall abnormalities, shunts, or clots He had a Velazquez catheter at [facility]. Mild leukocytosis (WBC 11); normocytic anemia with hgb 12.2; BUN 21, cr 0.95; mild hypernatremia (146) & mild hypokalemia (3.4); mg low-normal (1.9). Lipid panel done on 07/11 showed chol 147, LDL 93, HDL 32 (Low), trig 112; hgb A1c 6.1% . Platelets trended down from 145 on 07/11 to 104 on 07/14. 07/18/17 Improvement in facial drooping but right hemiparesis persists without significant change. Expressive aphasia seems to be improving. Continue ASA + Statin. Labs assessed yesterday - hypernatremia resolved; KDur ordered for mild hypokalemia - will repeat labs in am to f/u. BP under good control with amlodipine. Time spent with patient: 25 - 35 minutes Discharge Plan - Med Rec/Dispo Referrals/Follow Up: Alex Segal MD [Family Provider] - (Dr. Nancy Segal on 08/03/17 at 10:30 am for Hosp. follow-up. [id number] [address]) Prescriptions: New Nicotine Patch [Nicoderm] 21 mg TD DAILY #14 patch Melatonin 5 mg PO HS #0 tablet PEG 3350 17gm PACKET [Miralax] 17 gm PO DAILY packet Aspirin [ASA] 325 mg PO DAILY #100 tablet Continue Docusate Sodium [Colace] 1 cap PO BID Amlodipine [Norvasc] 5 mg PO DAILY Budesonide/Formoterol Fumarate [Symbicort 80-4.5 Mcg Inhaler] 2 puff IH BID # 1 hfa.aer.ad Atorvastatin Calcium 80 mg PO HS Changed Ramelteon [Rozerem] 8 mg PO HS PRN #14 tablet PRN Reason: Insomnia Discontinued Albuterol/Ipratropium [Duoneb] 1 unit AEROSOL Q6H Albuterol/Ipratropium [Duoneb] 1 unit AEROSOL Q2HR PRN PRN Reason: Shortness Of Air/Wheezing Discharge Instructions/Outpatient Orders: Consulting Provider Discharge Instructions Location: Determined By Patient - Disposition 01 Discharged Home, Self-Care
== END 2017-07-27 15:55 | disposition home or self-care (01) | DRG 57 ==
PROVIDERS: ADMIT Internal Medicine; ATTEND Internal Medicine